=== PATIENT | female | born 1965 | race Caucasian/White ===

== ENCOUNTER 2017-08-26 10:49 | Inpatient (IN) | payer BC ==
[2017-08-26 11:28] VITALS: BMI 20.5
[2017-08-26] MEDS ORDERED: SODIUM CHLORIDE 1,000 ML IV STA (11:50)
[2017-08-26 12:31] LABS: BASO % 0.4 % (0-2.0); EOS % 1.3 % (0-4.5); HEMATOCRIT 23.3 % (32.4-45.2); LYMPH % 20.2 % (8-40); MCHC 27.8 g/dl (32.0-36.0); MEAN PLT VOLUME 7.9 fl (7.5-11.1); MONO % 10.5 % (3.8-10.2); NEUT % 67.6 % (42.8-82.8); PLATELET COUNT 424 K/MM3 (134-434); RBC 3.83 M/mm3 (3.60-5.2); RDW 19.1 % (11.6-15.6); WHITE BLOOD COUNT 7.5 K/mm3 (4.0-10.0)
[2017-08-26 12:33] LABS: INR 1.11 (0.82-1.09); PROTHROMBIN TIME (PATIENT) 12.5 SEC (9.98-11.88)
--- NOTE | 2017-08-26 12:44 | PDOC ---
History of Present Illness - General Chief Complaint: Lightheaded Stated Complaint: DIZZINESS Time Seen by Provider: 08/26/17 11:16 History Source: Patient Exam Limitations: No Limitations - History of Present Illness Initial Comments: 08/26/17 12:49 52-year-old female presents to the emergency room with complaints of intermittent dizziness for the past 2 weeks worsened when standing. Patient states when symptoms occur she does not feel nauseous or have visual disturbances along with headache but does feel generally weak so sits down and symptoms resolved. Patient states while standing up at work today symptoms reoccurred and had to sit down. Patient states when she sat down she had one episode of vomiting that contained food particles. Patient states no recent weight change, cold or heat intolerance, change in diet, recent travel, recent illness. Patient also denies dental or ear infection presently. Patient denies history of vertigo or recent head injury. Patient states does not drink much fluids throughout the day and frequently misses meals. Presenting Symptoms: Dizziness Timing/Duration: reports: intermittent Severity/Quality: reports: mild Associated Symptoms: Yes: Dizziness, Vomiting Past History - Travel Traveled outside of the country in the last 30 days: No - Past Medical History Allergies/Adverse Reactions: Allergies Allergy/AdvReac Type Severity Reaction Status Date / Time No Known Allergies Allergy Verified 01/18/13 16:52 Home Medications: Ambulatory Orders No Home Medications 0 dose .ROUTE UTDICT 10/16/12 Anemia: No Asthma: No Cancer: No Cardiac Disorders: No CVA: No COPD: No CHF: No DVT: No Dementia: No Diabetes: No Dialysis: No GI Disorders: No Disorders: No HTN: No Hypercholesterolemia: No Kidney Stones: No Liver Disease: No Psychiatric Problems: No Seizures: No Thyroid Disease: No Other medical history: Denies medical hx - Surgical History Abdominal Surgery: No Appendectomy: No Cardiac Surgery: No Cholecystectomy: No Gastric Stapling: No GI Surgery: No Lung Surgery: No Neurologic Surgery: No Orthopedic Surgery: No - Suicide/Smoking/Psychosocial Hx Smoking Status: No Smoking History: Never smoked Number of Cigarettes Smoked Daily: 0 Hx Alcohol Use: No Drug/Substance Use Hx: No Patient Lives Alone: No Lives with/in: spouse/SO Cardiac Specific PMH - Complaint Specific PMHX Angina: No Cardiac Arrhythmia: No GERD: No Peripheral Vascular Disease: No Review of Systems - Review of Systems Able to Perform ROS?: Yes Constitutional: Yes: Weakness HEENTM: No: Symptoms Reported Respiratory: No: Symptoms reported Cardiac (ROS): Yes: Lightheadedness ABD/GI: Yes: Vomiting : No: Symptoms Reported Musculoskeletal: No: Symptoms Reported Integumentary: No: Symptoms Reported Neurological: Yes: Weakness, Dizziness *Physical Exam - Vital Signs Last Vital Signs Temp Pulse Resp BP Pulse Ox 97.4 F L 84 16 137/83 100 08/26/17 11:16 08/26/17 11:22 08/26/17 11:16 08/26/17 11:22 08/26/17 11:16 - Physical Exam General Appearance: Yes: Nourished, Appropriately Dressed. No: Apparent Distress HEENT: positive: EOMI, MONICO, TMs Normal, Pharynx Normal, Pale Conjunctivae (mild ) Neck: positive: Normal Thyroid, Supple. negative: Lymphadenopathy (R), Lymphadenopathy (L) Respiratory/Chest: positive: Lungs Clear, Normal Breath Sounds. negative: Respiratory Distress, Accessory Muscle Use Cardiovascular: positive: Regular Rhythm, Regular Rate. negative: Murmur Gastrointestinal/Abdominal: positive: Soft. negative: Tenderness Integumentary: positive: Normal Color, Dry, Warm Neurologic: positive: Motor Strength 5/5 Heart Score/ECG Review - History History: Slightly suspicious - Electrocardiogram EKG: Normal - Age Age: 45-65 - Risk Factors Based on the list above the patient has:: No risk factors known - Troponin Troponin: </= normal limit - Score Heart Score - Total: 1 - ECG Intrepretation Rhythm: Regular Rhythm (Rate 80. Normal sinus rhythm. No ST elevation or depression. Intervals are regular. QTC 459 milliseconds) ED Treatment Course - LABORATORY CBC & Chemistry Diagram: 08/26/17 12:00 08/26/17 12:00 - ADDITIONAL ORDERS Additional order review: Laboratory Results 08/26/17 08/26/17 08/26/17 14:15 14:05 12:00 PT with INR INR Sodium 141 Potassium 4.2 Chloride 104 Carbon Dioxide 26 Anion Gap 11 BUN 10 Creatinine 0.6 Creat Clearance w eGFR > 60 Random Glucose 111 H Calcium 8.5 Magnesium 2.1 Total Bilirubin 0.3 AST 10 L ALT 17 Alkaline Phosphatase 91 Creatine Kinase 50 Troponin I < 0.02 Total Protein 7.1 Albumin 3.6 Stool Occult Blood Negative Crossmatch See Detail 08/26/17 12:00 PT with INR 12.50 H INR 1.11 Sodium Potassium Chloride Carbon Dioxide Anion Gap BUN Creatinine Creat Clearance w eGFR Random Glucose Calcium Magnesium Total Bilirubin AST ALT Alkaline Phosphatase Creatine Kinase Troponin I Total Protein Albumin Stool Occult Blood Crossmatch 08/26/17 12:00 RBC 3.83 MCV 61.0 L MCHC 27.8 L RDW 19.1 H D MPV 7.9 Neutrophils % 67.6 Lymphocytes % 20.2 D Monocytes % 10.5 H Eosinophils % 1.3 Basophils % 0.4 - RADIOLOGY Radiology Studies Ordered: Category Date Time Status HEAD CT WITHOUT CONTRAST [CT] Stat CT Scan 08/26/17 11:50 Completed CHEST X-RAY PORTABLE* [RAD] Stat Radiology 08/26/17 11:50 Completed - Medications Given in the ED: ED Medications Discontinued Medications Generic Name Dose Route Start Last Admin Trade Name Freq PRN Reason Stop Dose Admin Sodium Chloride 1,000 mls @ 1,000 mls/hr 08/26/17 11:50 08/26/17 12:12 Normal Saline - IV 08/26/17 12:49 1,000 mls/hr ASDIR STA Administration Medical Decision Making - Medical Decision Making 08/26/17 12:28 Patient here for intermittent dizziness with standing and today had episode while standing followed by weakness and one episode of vomiting. Patient on exam was not found to be orthostatic and had a normal EKG. Patient concerning for electrolyte imbalance, anemia, intracranial pathology, or cardiac event. Patient ordered a cardiac workup, head CT, IV fluids, urinalysis, and cardiac monitoring. 08/26/17 13:01 Laboratory Tests 08/26/17 08/26/17 08/26/17 12:00 12:00 12:00 WBC 7.5 Hgb 6.5 L* D Hct 23.3 L D MCV 61.0 L MCH 16.9 L MCHC 27.8 L RDW 19.1 H D Neutrophils % 67.6 Monocytes % 10.5 H PT with INR 12.50 H Sodium 141 Potassium 4.2 Chloride 104 Carbon Dioxide 26 Anion Gap 11 BUN 10 Creatinine 0.6 Random Glucose 111 H Magnesium 2.1 AST 10 L ALT 17 Troponin I < 0.02 Chest x-ray negative. Patient ordered for type and screen and will check stool for occult blood once patient returns from CAT scan. 1 unit of PRBC ordered. 08/26/17 14:[address] negative for intracranial lesion or hemorrhage. Will admit to the hospitalist and consult hematology. 08/26/17 14:42 Laboratory Tests 08/26/17 14:05 Stool Occult Blood Negative 08/26/17 15:06 Spoke to christophe Tolentino and consult for hem/onc to be ordered *DC/Admit/Observation/Transfer Diagnosis at time of Disposition: Symptomatic anemia, Blood transfusion during current hospitalisation - Discharge Dispostion Admit: Yes Decision to Admit order Date/Time: Decision to Admit Order Category Date Time Status Decision to Admit to Hospital Routine Admission 08/26/17 14:18 Active - Referrals - Patient Instructions - Post Discharge Activity
[2017-08-26 12:45] LABS: ALBUMIN 3.6 g/dl (3.4-5.0); ANION GAP 11 (8-16); BLOOD UREA NITROGEN 10 mg/dL (7-18); CALCIUM 8.5 mg/dL (8.5-10.1); CHLORIDE 104 mmol/L (98-107); CO2 26 mmol/L (21-32); CREATININE 0.6 mg/dL (0.55-1.02); GLUCOSE,RANDOM 111 mg/dL (74-106); MAGNESIUM 2.1 mg/dL (1.8-2.4); POTASSIUM 4.2 mmol/L (3.5-5.1); SGOT/AST 10 U/L (15-37); SGPT/ALT 17 U/L (12-78); SODIUM 141 mmol/L (136-145)
[2017-08-26 12:46] LABS: MCH 16.9 pg (25.7-33.7)
[2017-08-26 12:47] LABS: HEMOGLOBIN 6.5 GM/dL (10.7-15.3)
[2017-08-26 12:49] LABS: ALK PHOS 91 U/L (45-117); BILIRUBIN,TOTAL 0.3 mg/dL (0.2-1.0); TOT PROT 7.1 g/dl (6.4-8.2)
--- NOTE | 2017-08-26 15:02 | HP ---
CHIEF COMPLAINT: Dizziness PCP: None HISTORY OF PRESENT ILLNESS 52 year-old woman with no significant PMH was at work earlier today when she became dizzy. She felt nauseous and vomited x 1. She was taken to the ED downstairs. Patient reports experiencing episodes of dizziness for the past 4 to 6 weeks. She describes these earlier episodes as brief, lasting only a few seconds, and self-resolving. Today's episode, however, was more prolonged. Patient denies any associated symptoms with these episodes of dizziness: no headache, fever, sweats, chills; no abdominal pain or diarrhea; no chest pain, palpitations, SOB, FERRERA, orthopnea, or lower extremity edema; no hematuria, hematochezia, hematemesis, no vaginal bleeding/discharge. She does not report any type of bleeding. Her LMP was 7-8 years ago, last PAP 3 years ago. Has never had a colonoscopy. Patient had no breakfast, just a piece of chocolate. She admits she hydrates very little. ER course was notable for: (1) Afebrile, vital signs stable (2) Hgb 6.5 (3) MCV 61; RDW 19.1 Recent Travel: No PAST MEDICAL HISTORY: None reported PAST SURGICAL HISTORY: x 1 x 30 years Social History: Smoking: no Alcohol: no Drugs: no Family History: Mother age 70 ovarian cancer; father alive had HI in 40's; brother and sister a&w; two children a&w, daughter had cardiac ablation at age 23 for SVT Allergies No Known Allergies Allergy (Verified 01/18/13 16:52) HOME MEDICATIONS: Home Medications Medication Instructions Recorded No Home Medications 0 dose .ROUTE UTDICT 10/16/12 REVIEW OF SYSTEMS CONSTITUTIONAL: Absent: fever, chills, diaphoresis, generalized weakness, malaise, loss of appetite, weight change HEENT: Absent: rhinorrhea, nasal congestion, throat pain, throat swelling, difficulty swallowing, mouth swelling, ear pain, eye pain, visual changes CARDIOVASCULAR: +dizziness Absent: chest pain, syncope, palpitations, irregular heart rate, peripheral edema RESPIRATORY: Absent: cough, shortness of breath, dyspnea with exertion, orthopnea, wheezing, stridor, hemoptysis GASTROINTESTINAL: Absent: abdominal pain, abdominal distension, nausea, vomiting, diarrhea, constipation, melena, hematochezia GENITOURINARY: Absent: dysuria, frequency, urgency, hesitancy, hematuria, flank pain, genital pain MUSCULOSKELETAL: Absent: myalgia, arthralgia, joint swelling, back pain, neck pain SKIN: Absent: rash, itching, pallor HEMATOLOGIC/IMMUNOLOGIC: Absent: easy bleeding, easy bruising, lymphadenopathy, frequent infections ENDOCRINE: Absent: unexplained weight gain, unexplained weight loss, heat intolerance, cold intolerance NEUROLOGIC: Absent: headache, focal weakness or paresthesias, dizziness, unsteady gait, seizure, mental status changes, bladder or bowel incontinence PSYCHIATRIC: Absent: anxiety, depression, suicidal or homicidal ideation, hallucinations. PHYSICAL EXAMINATION Vital Signs - 24 hr 08/26/17 08/26/17 11:16 11:22 Temperature 97.4 F L Pulse Rate 84 Pulse Rate [ 84 Right side Sitting] Pulse Rate [ 83 Right side Standing] Respiratory 16 Rate Blood Pressure 141/83 Blood Pressure 137/83 [Right side Sitting] Blood Pressure 143/90 [Right side Standing] O2 Sat by Pulse 100 Oximetry (%) GENERAL: Awake, alert, and fully oriented, in no acute distress. HEAD: Normal with no signs of trauma. EYES: Pupils equal, round and reactive to light, extraocular movements intact, sclera anicteric, conjunctiva clear. No lid lag. EARS, NOSE, THROAT: Ears normal, nares patent, oropharynx clear without exudates. Moist mucous membranes. NECK: Normal range of motion, supple without lymphadenopathy, JVD, or masses. LUNGS: Breath sounds equal, clear to auscultation bilaterally. No wheezes, and no crackles. No accessory muscle use. HEART: Regular rate and rhythm, normal S1 and S2; +murmur ABDOMEN: Soft, nontender, not distended, normoactive bowel sounds, no guarding, no rebound, no masses. MUSCULOSKELETAL: Normal range of motion at all joints. No bony deformities or tenderness. No CVA tenderness. UPPER EXTREMITIES: 2+ pulses, warm, well-perfused. No cyanosis. No clubbing. No peripheral edema. LOWER EXTREMITIES: 2+ pulses, warm, well-perfused. No calf tenderness. No peripheral edema. NEUROLOGICAL: Cranial nerves II-XII intact. Normal speech. Normal gait. Laboratory Results - last 24 hr 08/26/17 08/26/17 08/26/17 12:00 12:00 12:00 WBC 7.5 RBC 3.83 Hgb 6.5 L* D Hct 23.3 L D MCV 61.0 L MCH 16.9 L MCHC 27.8 L RDW 19.1 H D Plt Count 424 D MPV 7.9 Neutrophils % 67.6 Lymphocytes % 20.2 D Monocytes % 10.5 H Eosinophils % 1.3 Basophils % 0.4 PT with INR 12.50 H INR 1.11 Sodium 141 Potassium 4.2 Chloride 104 Carbon Dioxide 26 Anion Gap 11 BUN 10 Creatinine 0.6 Creat Clearance w eGFR > 60 Random Glucose 111 H Calcium 8.5 Magnesium 2.1 Total Bilirubin 0.3 AST 10 L ALT 17 Alkaline Phosphatase 91 Creatine Kinase 50 Troponin I < 0.02 Total Protein 7.1 Albumin 3.6 Stool Occult Blood Crossmatch 08/26/17 08/26/17 14:05 14:15 WBC RBC Hgb Hct MCV MCH MCHC RDW Plt Count MPV Neutrophils % Lymphocytes % Monocytes % Eosinophils % Basophils % PT with INR INR Sodium Potassium Chloride Carbon Dioxide Anion Gap BUN Creatinine Creat Clearance w eGFR Random Glucose Calcium Magnesium Total Bilirubin AST ALT Alkaline Phosphatase Creatine Kinase Troponin I Total Protein Albumin Stool Occult Blood Negative Crossmatch See Detail ASSESSMENT/PLAN: 52 year-old woman with no significant PMH placed on observation for an episode of dizziness and vomiting at work. Has been experiencing episodes of dizziness for the past 4 to 6 weeks. Dizziness --ECG with mild T-wave inversions V1, V2, V4, V5, possible ischemia from severe anemia? repeat in am --QT interval high normal --troponin x 1 negative; second pending --echo ordered --US carotids ordered --TSH, lipids, A1C, lytes --telemetry monitoring --cardiology consult requested --CT head: mild volume loss, otherwise unremarkable --orthostatics q8h Microcytic anemia --Hgb 6.5, MCV 61.0 --transfusing 1U PRBC; then Lasix IV 20mg x 1 --seen and evaluated by heme Dr. Hill --iron studies, SPEP/IPEP, LDH --GI consult Dr. Rao requested; occult stool negative FEN Fluids: NS @ 50mL/hr Electrolytes: replete as indicated Nutrition: regular diet DVT prophylaxis: oob, ambulation Dispo: continues to require observation. Full code. Visit type - Emergency Visit Emergency Visit: Yes ED Registration Date: 08/26/17 Care time: The patient presented to the Emergency Department on the above date and was hospitalized for further evaluation of their emergent condition. - New Patient This patient is new to me today: Yes Date on this admission: 08/26/17 - Critical Care Critical Care patient: No
[2017-08-26 15:30] LABS: URINE APPEARANCE CLEAR; URINE BILIRUBIN NEGATIVE (NEGATIVE); URINE BLOOD NEGATIVE (NEGATIVE); URINE COLOR COLORLESS; URINE GLUCOSE (UA) NEGATIVE (NEGATIVE); URINE KETONE NEGATIVE (NEGATIVE); URINE LEUK ESTERASE NEGATIVE (NEGATIVE); URINE NITRITE NEGATIVE (NEGATIVE); URINE PROTEIN NEGATIVE (NEGATIVE); URINE UROBILINOGEN NEGATIVE mg/dL (0.2-1.0)
--- NOTE | 2017-08-26 16:14 | CONSULT ---
Consult Consult Specialty:: Hematology - History of Present Illness History of Present Illness: 52-year-old female presents to the emergency room with complaints of intermittent dizziness for the past 2 weeks worsened when standing. Patient is a non smoker Employee here Poor OP f.u, did not get blood work for a while Never had GI w.u denies bleeding rectally FH of mom with Ovarian ca , , diagnosed in 60s no FH of colon cancer. Denies any hx of hemoglobinopathies she is aware of Does not recall when her last mammo was/neither PAP No weight loss. Acquaintances complained recently that she was becoming pale Hematology consulted for anemia - History Source History Provided By: Patient, Medical Record - Alcohol/Substance Use Hx Alcohol Use: No - Smoking History Smoking history: Never smoked Aproximately how many cigarettes per day: 0 Home Medications - Allergies Allergies/Adverse Reactions: Allergies Allergy/AdvReac Type Severity Reaction Status Date / Time No Known Allergies Allergy Verified 01/18/13 16:52 - Home Medications Home Medications: Ambulatory Orders No Home Medications 0 dose .ROUTE UTDICT 10/16/12 Review of Systems - Review of Systems Constitutional: reports: Weakness. denies: Chills, Diaphoresis, Fever, Lethargy , Loss of Appetite, Night Sweats, Unintentional Wgt. Loss Eyes: denies: Blind Spots HENT: denies: Difficult Swallowing, Ringing in Ears Neck: denies: Decreased ROM, Lumps, Pain on Movement Cardiovascular: denies: Chest Pain, Edema, Palpitations, Shortness of Breath Respiratory: reports: SOB on Exertion. denies: Cough Neurological: reports: Dizziness Hematology/Lymphatic: reports: No Symptoms Physical Exam Vital Signs: Vital Signs Temperature 98 F 08/26/17 15:35 Pulse Rate 91 H 08/26/17 15:35 Respiratory Rate 20 08/26/17 15:35 Blood Pressure 140/86 08/26/17 15:35 O2 Sat by Pulse Oximetry (%) 100 08/26/17 11:16 Constitutional: Yes: Well Nourished, No Distress, Calm Eyes: Yes: Other (pale) HENT: Yes: Atraumatic, Normocephalic, Other (pale) Neck: Yes: Supple, Trachea Midline. No: Lymphadenopathy Cardiovascular: Yes: Regular Rate and Rhythm Respiratory: Yes: Regular, CTA Bilaterally Gastrointestinal: Yes: Normal Bowel Sounds, Soft Breast(s): Yes: WNL Musculoskeletal: Yes: WNL Extremities: Yes: WNL Edema: No Integumentary: Yes: WNL Neurological: Yes: Alert, Oriented Labs: CBC, BMP 08/26/17 12:00 08/26/17 12:00 Imaging - Results Cat Scan: Report Reviewed Problem List - Problems (1) Symptomatic anemia Code(s): D64.9 - ANEMIA, UNSPECIFIED (2) Thrombocytosis Assessment/Plan: reactive Code(s): D47.3 - ESSENTIAL (HEMORRHAGIC) THROMBOCYTHEMIA (3) Dizziness Code(s): R42 - DIZZINESS AND GIDDINESS Assessment/Plan new Microcytic anemia seems chronic, as noticed by MCV and RDW. last values in [place] 2012 , were normal FOBTx1 negative. Seems well compensated. Receiving PRBCs. will do screening tests to be added for today am labs as she is receiving blood Never had a GI w/u, screening colonoscopy too. Will need w/u OP/IP. Would consult GI to weigh in. Would anticipate her staying on Fe supplements upon dc, but will wait for iron levels. explained the pt importance of OP f/u leonel >50. OP malignancy screening Thrombocytosis Reactive from Anemia
--- NOTE | 2017-08-26 17:32 | EKG ---
Test Reason : Blood Pressure : / mmHG Vent. Rate : 080 BPM Atrial Rate : 080 BPM P-R Int : 158 ms QRS Dur : 086 ms QT Int : 398 ms P-R-T Axes : 072 039 015 degrees QTc Int : 459 ms NORMAL SINUS RHYTHM NORMAL ECG WHEN COMPARED WITH ECG OF 20-OCT-2012 16:05, NO SIGNIFICANT CHANGE WAS FOUND Confirmed by Sher Estrella ([id number]) on 08/26/2017 5:32:01 PM Referred By: Confirmed By:Sher Estrella
[2017-08-26] MEDS ORDERED: FUROSEMIDE 40 MG/4 ML INJECTABLE VIAL IVPUSH ONE ×2 (19:30→22:15)
[2017-08-26] MEDS ORDERED: ONDANSETRON 4 MG/2 ML VIAL IVPUSH ONE (19:41)
[2017-08-26] MEDS ORDERED: ACETAMINOPHEN 325 MG TABLET (FP) PO ONE (19:41)
[2017-08-26] MEDS ORDERED: SODIUM CHLORIDE 1,000 ML IV SCH (20:00)
[2017-08-27 07:10] LABS: BASO % 0.4 % (0-2.0); EOS % 1.7 % (0-4.5); HEMATOCRIT 25.6 % (32.4-45.2); HEMOGLOBIN 7.5 GM/dL (10.7-15.3); LYMPH % 25.6 % (8-40); MCHC 29.3 g/dl (32.0-36.0); MEAN CELL VOLUME 63.5 fl (80-96); MEAN PLT VOLUME 8.2 fl (7.5-11.1); MONO % 10.9 % (3.8-10.2); NEUT % 61.4 % (42.8-82.8); PLATELET COUNT 382 K/MM3 (134-434); RBC 4.03 M/mm3 (3.60-5.2); RDW 21.9 % (11.6-15.6); WHITE BLOOD COUNT 6.7 K/mm3 (4.0-10.0)
[2017-08-27 07:48] LABS: ALBUMIN 3.3 g/dl (3.4-5.0); ANION GAP 7 (8-16); BLOOD UREA NITROGEN 6 mg/dL (7-18); CHLORIDE 108 mmol/L (98-107); CO2 27 mmol/L (21-32); CREATININE 0.7 mg/dL (0.55-1.02); GLUCOSE,RANDOM 105 mg/dL (74-106); MAGNESIUM 1.9 mg/dL (1.8-2.4); POTASSIUM 3.9 mmol/L (3.5-5.1); SGOT/AST 7 U/L (15-37); SGPT/ALT 15 U/L (12-78); SODIUM 142 mmol/L (136-145)
[2017-08-27 07:59] LABS: ALK PHOS 88 U/L (45-117); BILIRUBIN,TOTAL 0.7 mg/dL (0.2-1.0); TOT PROT 6.3 g/dl (6.4-8.2)
--- NOTE | 2017-08-27 08:23 | PN ---
Physical Exam: SUBJECTIVE: Patient seen and examined OBJECTIVE: Vital Signs Period Temp Pulse Resp BP Sys/Silva Pulse Ox Last 24 Hr 97.4 F-99.1 F 78-96 16-20 97-143/70-90 97-100 Laboratory Results - last 24 hr 08/26/17 08/26/17 08/26/17 12:00 12:00 12:00 WBC 7.5 RBC 3.83 Hgb 6.5 L* D Hct 23.3 L D MCV 61.0 L MCH 16.9 L MCHC 27.8 L RDW 19.1 H D Plt Count 424 D MPV 7.9 Neutrophils % 67.6 Lymphocytes % 20.2 D Monocytes % 10.5 H Eosinophils % 1.3 Basophils % 0.4 Retic Count PT with INR 12.50 H INR 1.11 Sodium 141 Potassium 4.2 Chloride 104 Carbon Dioxide 26 Anion Gap 11 BUN 10 Creatinine 0.6 Creat Clearance w eGFR > 60 Random Glucose 111 H Calcium 8.5 Phosphorus Magnesium 2.1 Ferritin Total Bilirubin 0.3 AST 10 L ALT 17 Alkaline Phosphatase 91 LD Total Creatine Kinase 50 Troponin I < 0.02 Total Protein 7.1 Albumin 3.6 Triglycerides Cholesterol Total LDL Cholesterol HDL Cholesterol TSH Urine Color Urine Appearance Urine pH Ur Specific [place] Urine Protein Urine Glucose (UA) Urine Ketones Urine Blood Urine Nitrite Urine Bilirubin Urine Urobilinogen Ur Leukocyte Esterase Stool Occult Blood Blood Type Antibody Screen Crossmatch 08/26/17 08/26/17 08/26/17 14:05 14:15 15:15 WBC RBC Hgb Hct MCV MCH MCHC RDW Plt Count MPV Neutrophils % Lymphocytes % Monocytes % Eosinophils % Basophils % Retic Count PT with INR INR Sodium Potassium Chloride Carbon Dioxide Anion Gap BUN Creatinine Creat Clearance w eGFR Random Glucose Calcium Phosphorus Magnesium Ferritin Total Bilirubin AST ALT Alkaline Phosphatase LD Total Creatine Kinase Troponin I Total Protein Albumin Triglycerides Cholesterol Total LDL Cholesterol HDL Cholesterol TSH Urine Color Colorless Urine Appearance Clear Urine pH 7.0 Ur Specific [place] 1.004 Urine Protein Negative Urine Glucose (UA) Negative Urine Ketones Negative Urine Blood Negative Urine Nitrite Negative Urine Bilirubin Negative Urine Urobilinogen Negative Ur Leukocyte Esterase Negative Stool Occult Blood Negative Blood Type O NEGATIVE Antibody Screen Negative Crossmatch See Detail 08/26/17 08/26/17 08/26/17 15:15 15:22 22:00 WBC RBC Hgb Hct MCV MCH MCHC RDW Plt Count MPV Neutrophils % Lymphocytes % Monocytes % Eosinophils % Basophils % Retic Count 1.87 H PT with INR INR Sodium Potassium Chloride Carbon Dioxide Anion Gap BUN Creatinine Creat Clearance w eGFR Random Glucose Calcium Phosphorus Magnesium Ferritin 1.795 L Total Bilirubin AST ALT Alkaline Phosphatase LD Total Creatine Kinase Troponin I Total Protein Albumin Triglycerides Cholesterol Total LDL Cholesterol HDL Cholesterol TSH Urine Color Urine Appearance Urine pH Ur Specific [place] Urine Protein Urine Glucose (UA) Urine Ketones Urine Blood Urine Nitrite Urine Bilirubin Urine Urobilinogen Ur Leukocyte Esterase Stool Occult Blood Blood Type O NEGATIVE Antibody Screen Cancelled Crossmatch 08/26/17 08/26/17 08/27/17 22:00 22:00 05:35 WBC RBC Hgb Hct MCV MCH MCHC RDW Plt Count MPV Neutrophils % Lymphocytes % Monocytes % Eosinophils % Basophils % Retic Count PT with INR INR Sodium 142 Potassium 3.9 Chloride 108 H Carbon Dioxide 27 Anion Gap 7 L BUN 6 L Creatinine 0.7 Creat Clearance w eGFR > 60 Random Glucose 105 Calcium 8.0 L Phosphorus 4.0 Magnesium 1.9 Ferritin Total Bilirubin 0.7 D AST 7 L ALT 15 Alkaline Phosphatase 88 LD Total 154 Creatine Kinase Troponin I < 0.02 Total Protein 6.3 L Albumin 3.3 L Triglycerides Cholesterol Total LDL Cholesterol HDL Cholesterol TSH 2.59 Urine Color Urine Appearance Urine pH Ur Specific [place] Urine Protein Urine Glucose (UA) Urine Ketones Urine Blood Urine Nitrite Urine Bilirubin Urine Urobilinogen Ur Leukocyte Esterase Stool Occult Blood Blood Type Antibody Screen Crossmatch 08/27/17 05:35 WBC RBC Hgb Hct MCV MCH MCHC RDW Plt Count MPV Neutrophils % Lymphocytes % Monocytes % Eosinophils % Basophils % Retic Count PT with INR INR Sodium Potassium Chloride Carbon Dioxide Anion Gap BUN Creatinine Creat Clearance w eGFR Random Glucose Calcium Phosphorus Magnesium Ferritin Total Bilirubin AST ALT Alkaline Phosphatase LD Total Creatine Kinase Troponin I Total Protein Albumin Triglycerides Cancelled Cholesterol Cancelled Total LDL Cholesterol Cancelled HDL Cholesterol Cancelled TSH Urine Color Urine Appearance Urine pH Ur Specific [place] Urine Protein Urine Glucose (UA) Urine Ketones Urine Blood Urine Nitrite Urine Bilirubin Urine Urobilinogen Ur Leukocyte Esterase Stool Occult Blood Blood Type Antibody Screen Crossmatch Imagng 2 US carotids: elevated peak systolic velocities bilateral cervical internal carotids, 50-69% stenosis with no significant plaque 2/ US transvaginal: normal study ASSESSMENT/PLAN 52 year-old woman with no significant PMH placed on observation for an episode of dizziness and vomiting at work. Has been experiencing episodes of dizziness for the past 4 to 6 weeks. Dizziness --seen and evaluated by cardiology, doubt cardiac etiology for episodes of dizziness --ECG with non-specific changes --troponin x 2 negative --echo ordered pending dictation --US carotids: no significant plaque --telemetry: no events --TSH wnl --lipids: LDL 163, discuss starting statin with patient --A1C 5.4% --CT head: mild volume loss, otherwise unremarkable --not orthostatic Microcytic anemia --Hgb 6.5--7.5 after 1U PRBC --anemia workup in progress --Dr. Hill following --EGD/colonoscopy tomorrow with Dr. Maira SORENSEN Fluids: PO intake adequate Electrolytes: replete as indicated Nutrition: regular diet DVT prophylaxis: oob, ambulation Dispo: continues to require observation. Full code. Visit type - Emergency Visit Emergency Visit: Yes ED Registration Date: 08/26/17 Care time: The patient presented to the Emergency Department on the above date and was hospitalized for further evaluation of their emergent condition. - New Patient This patient is new to me today: No - Critical Care Critical Care patient: No
[2017-08-27 08:24] LABS: MCH 18.6 pg (25.7-33.7)
--- NOTE | 2017-08-27 09:08 | CON.GI ---
Consult Consult Specialty:: GI Reason for Consultation:: Aneia - History of Present Illness Chief Complaint: Anemia History of Present Illness: 52 year-old woman with no significant PMH was at work earlier today when she became dizzy. She felt nauseous and vomited x 1. Patient reports experiencing episodes of dizziness for the past 4 to 6 weeks. She describes these earlier episodes as brief, lasting only a few seconds, and self-resolving. Today's episode, however, was more prolonged. Patient denies any associated symptoms with these episodes of dizziness: no headache, fever, sweats, chills; no abdominal pain or diarrhea; no chest pain, palpitations, SOB, FERRERA, orthopnea, or lower extremity edema; no hematuria, hematochezia, hematemesis, no vaginal bleeding/discharge. She does not report any type of bleeding. Her LMP was 7-8 years ago, last PAP 3 years ago. Has never had a colonoscopy. At the time of this encounter, the pt appears comfortable, not in distress. Reports no recent melena, changes in stool caliper, unintentional weight loss, jaundice, low grade fever, chills, fluctuating abdominal girth. Denies prolonged bleeding, or easy bruising. Denies chronic NSAIDs, ETOH. - History Source History Provided By: Patient, Medical Record Limitations to Obtaining History: No Limitations - Alcohol/Substance Use Hx Alcohol Use: No - Smoking History Smoking history: Never smoked Aproximately how many cigarettes per day: 0 Home Medications - Allergies Allergies/Adverse Reactions: Allergies Allergy/AdvReac Type Severity Reaction Status Date / Time No Known Allergies Allergy Verified 01/18/13 16:52 - Home Medications Home Medications: Ambulatory Orders No Home Medications 0 dose .ROUTE UTDICT 10/16/12 Family Disease History - Family Disease History Family History: Unremarkable Review of Systems Findings/Remarks: As per HPI, H&P Physical Exam-GI Vital Signs: Vital Signs Temperature 98.7 F 08/26/17 23:00 Pulse Rate 78 08/27/17 06:00 Respiratory Rate 18 08/26/17 23:00 Blood Pressure 97/70 08/27/17 06:00 O2 Sat by Pulse Oximetry (%) 97 08/26/17 23:15 Constitutional: Yes: Well Nourished, No Distress, Calm, Pallor Eyes: Yes: Conjunctiva Clear HENT: Yes: Atraumatic Neck: Yes: Supple Cardiovascular: Yes: Regular Rate and Rhythm Respiratory: Yes: Regular Gastrointestinal Inspection: No: Ascites, Distention ...Auscultate: Yes: Normoactive Bowel Sounds ...Palpate: Yes: Soft. No: Firm/Rigid, Guarding, Mass, Tenderness, Tenderness, Epigastium, Tenderness, Rebound ...Rectal Exam: Yes: Guaiac Negative (per lab) Neurological: Yes: Alert Labs: CBC, BMP 08/27/17 05:35 08/27/17 05:35 INR, PTT INR 1.11 (0.82-1.09) 08/26/17 12:00 Laboratory Tests 08/26/17 08/26/17 08/26/17 12:00 12:00 12:00 WBC 7.5 RBC 3.83 Hgb 6.5 L* D Hct 23.3 L D MCV 61.0 L MCH 16.9 L MCHC 27.8 L RDW 19.1 H D Plt Count 424 D MPV 7.9 Neutrophils % 67.6 Lymphocytes % 20.2 D Monocytes % 10.5 H Eosinophils % 1.3 Basophils % 0.4 Retic Count PT with INR 12.50 H INR 1.11 Sodium 141 Potassium 4.2 Chloride 104 Carbon Dioxide 26 Anion Gap 11 BUN 10 Creatinine 0.6 Creat Clearance w eGFR > 60 Random Glucose 111 H Hemoglobin A1c % Calcium 8.5 Phosphorus Magnesium 2.1 Ferritin Total Bilirubin 0.3 AST 10 L ALT 17 Alkaline Phosphatase 91 LD Total Creatine Kinase 50 Troponin I < 0.02 Total Protein 7.1 Albumin 3.6 Triglycerides Cholesterol Total LDL Cholesterol HDL Cholesterol TSH Urine Color Urine Appearance Urine pH Ur Specific [place] Urine Protein Urine Glucose (UA) Urine Ketones Urine Blood Urine Nitrite Urine Bilirubin Urine Urobilinogen Ur Leukocyte Esterase Stool Occult Blood Blood Type Antibody Screen Crossmatch 08/26/17 08/26/17 08/26/17 14:05 14:15 15:15 WBC RBC Hgb Hct MCV MCH MCHC RDW Plt Count MPV Neutrophils % Lymphocytes % Monocytes % Eosinophils % Basophils % Retic Count PT with INR INR Sodium Potassium Chloride Carbon Dioxide Anion Gap BUN Creatinine Creat Clearance w eGFR Random Glucose Hemoglobin A1c % Calcium Phosphorus Magnesium Ferritin Total Bilirubin AST ALT Alkaline Phosphatase LD Total Creatine Kinase Troponin I Total Protein Albumin Triglycerides Cholesterol Total LDL Cholesterol HDL Cholesterol TSH Urine Color Colorless Urine Appearance Clear Urine pH 7.0 Ur Specific [place] 1.004 Urine Protein Negative Urine Glucose (UA) Negative Urine Ketones Negative Urine Blood Negative Urine Nitrite Negative Urine Bilirubin Negative Urine Urobilinogen Negative Ur Leukocyte Esterase Negative Stool Occult Blood Negative Blood Type O NEGATIVE Antibody Screen Negative Crossmatch See Detail 08/26/17 08/26/17 08/26/17 15:15 15:22 22:00 WBC RBC Hgb Hct MCV MCH MCHC RDW Plt Count MPV Neutrophils % Lymphocytes % Monocytes % Eosinophils % Basophils % Retic Count 1.87 H PT with INR INR Sodium Potassium Chloride Carbon Dioxide Anion Gap BUN Creatinine Creat Clearance w eGFR Random Glucose Hemoglobin A1c % Calcium Phosphorus Magnesium Ferritin 1.795 L Total Bilirubin AST ALT Alkaline Phosphatase LD Total Creatine Kinase Troponin I Total Protein Albumin Triglycerides Cholesterol Total LDL Cholesterol HDL Cholesterol TSH Urine Color Urine Appearance Urine pH Ur Specific [place] Urine Protein Urine Glucose (UA) Urine Ketones Urine Blood Urine Nitrite Urine Bilirubin Urine Urobilinogen Ur Leukocyte Esterase Stool Occult Blood Blood Type O NEGATIVE Antibody Screen Cancelled Crossmatch 08/26/17 08/26/17 08/27/17 22:00 22:00 05:35 WBC 6.7 RBC 4.03 Hgb 7.5 L D Hct 25.6 L MCV 63.5 L MCH 18.6 L MCHC 29.3 L RDW 21.9 H D Plt Count 382 MPV 8.2 Neutrophils % 61.4 Lymphocytes % 25.6 D Monocytes % 10.9 H Eosinophils % 1.7 Basophils % 0.4 Retic Count PT with INR INR Sodium Potassium Chloride Carbon Dioxide Anion Gap BUN Creatinine Creat Clearance w eGFR Random Glucose Hemoglobin A1c % Calcium Phosphorus Magnesium Ferritin Total Bilirubin AST ALT Alkaline Phosphatase LD Total 154 Creatine Kinase Troponin I < 0.02 Total Protein Albumin Triglycerides Cholesterol Total LDL Cholesterol HDL Cholesterol TSH Urine Color Urine Appearance Urine pH Ur Specific [place] Urine Protein Urine Glucose (UA) Urine Ketones Urine Blood Urine Nitrite Urine Bilirubin Urine Urobilinogen Ur Leukocyte Esterase Stool Occult Blood Blood Type Antibody Screen Crossmatch 08/27/17 08/27/17 08/27/17 05:35 05:35 05:35 WBC RBC Hgb Hct MCV MCH MCHC RDW Plt Count MPV Neutrophils % Lymphocytes % Monocytes % Eosinophils % Basophils % Retic Count PT with INR INR Sodium 142 Potassium 3.9 Chloride 108 H Carbon Dioxide 27 Anion Gap 7 L BUN 6 L Creatinine 0.7 Creat Clearance w eGFR > 60 Random Glucose 105 Hemoglobin A1c % 5.4 Calcium 8.0 L Phosphorus 4.0 Magnesium 1.9 Ferritin Total Bilirubin 0.7 D AST 7 L ALT 15 Alkaline Phosphatase 88 LD Total Creatine Kinase Troponin I Total Protein 6.3 L Albumin 3.3 L Triglycerides 124 Cancelled Cholesterol 215 H Cancelled Total LDL Cholesterol 163 H Cancelled HDL Cholesterol 32 L Cancelled TSH 2.59 Urine Color Urine Appearance Urine pH Ur Specific [place] Urine Protein Urine Glucose (UA) Urine Ketones Urine Blood Urine Nitrite Urine Bilirubin Urine Urobilinogen Ur Leukocyte Esterase Stool Occult Blood Blood Type Antibody Screen Crossmatch Imaging - Results Cat Scan: Report Reviewed Ultrasound: Report Reviewed Problem List - Problems (1) Microcytic hypochromic anemia Code(s): D50.9 - IRON DEFICIENCY ANEMIA, UNSPECIFIED (2) Iron deficiency anemia due to chronic blood loss Code(s): D50.0 - IRON DEFICIENCY ANEMIA SECONDARY TO BLOOD LOSS (CHRONIC) (3) Symptomatic anemia Code(s): D64.9 - ANEMIA, UNSPECIFIED Assessment/Plan A 52 yof with microcytic, hypochromic, symptomatic anemia w/o obvious, ongoing GI blood loss. Agree anemia work up as ordered. Plan EGD and colonoscopy to r/o GI malignancy, chronic GI blood loss Close monitoring for signs and symptoms of GI bleeding. Keep Hgb above 7 g/dl Discussed with the patient
[2017-08-27] MEDS ORDERED: ACETAMINOPHEN 500 MG TABLET (FP) PO PRN (09:09)
[2017-08-27 09:48] LABS: CHOLESTEROL 215 mg/dL (50-200); HDL CHOLESTEROL 32 mg/dL (40-60); LDL CHOLESTEROL (ONLY SJRH) 163 mg/dL (5-100); TRIGLYCERIDES 124 mg/dL (35-160)
[2017-08-27] MEDS ORDERED: MORPHINE SULFATE 10 MG/1 ML *VIAL IVPUSH PRN (10:13)
[2017-08-27] MEDS ORDERED: BISACODYL 5 MG TABLET.DR (FP) PO ONE (10:47)
--- NOTE | 2017-08-27 11:28 | EKG ---
Test Reason : Blood Pressure : / mmHG Vent. Rate : 092 BPM Atrial Rate : 092 BPM P-R Int : 156 ms QRS Dur : 078 ms QT Int : 366 ms P-R-T Axes : 074 037 016 degrees QTc Int : 452 ms NORMAL SINUS RHYTHM NONSPECIFIC ST AND T WAVE ABNORMALITY ABNORMAL ECG WHEN COMPARED WITH ECG OF 26-AUG-2017 12:29, NO SIGNIFICANT CHANGE WAS FOUND Confirmed by TITA FELIX, BILL ([id number]) on 08/27/2017 11:28:09 AM Referred By: Jonah EVERETT Confirmed By:BILL RIVERS MD
--- NOTE | 2017-08-27 11:42 | CON.CARD ---
Cardiology Consult (text) - Consultation Consultation Note: cc: dizzy hpi: 52 f no sig pmhx here with dizziness. Past 2 weeks has been having dizziness and general weakness. Sxs happen at rest or with exertion, not related to positioning. No cp, sob, palps, loc, pnd, orthopnea, le edema. No hx hrt dz. Found to have severe anemia. pmh: per hpi psh: nc social: no tob fam: father mild mi 40s ros: per hpi; no nvd, fever, wt loss, hematuria, gib, muscle pains, fritz, vision changes, cough meds: Home Medications Medication Instructions Recorded No Home Medications 0 dose .ROUTE UTDICT 10/16/12 pe: Vital Signs Period Temp Pulse Resp BP Sys/Silva Pulse Ox Last 24 Hr 98 F-99.1 F 78-98 18-20 93-140/68-86 97-98 nad no jvd rrr s1s1 no mrg cta bl nl eff aaox3 no le e/c/c abd nt nd pos bs no jaundice diaphoresis pos dp pt no carotid bruits Laboratory Last Values WBC 6.7 K/mm3 (4.0-10.0) 08/27/17 05:35 RBC 4.03 M/mm3 (3.60-5.2) 08/27/17 05:35 Hgb 7.5 GM/dL (10.7-15.3) L D 08/27/17 05:35 Hct 25.6 % (32.4-45.2) L 08/27/17 05:35 MCV 63.5 fl (80-96) L 08/27/17 05:35 MCH 18.6 pg (25.7-33.7) L 08/27/17 05:35 MCHC 29.3 g/dl (32.0-36.0) L 08/27/17 05:35 RDW 21.9 % (11.6-15.6) H D 08/27/17 05:35 Plt Count 382 K/MM3 (134-434) 08/27/17 05:35 MPV 8.2 fl (7.5-11.1) 08/27/17 05:35 Neutrophils % 61.4 % (42.8-82.8) 08/27/17 05:35 Lymphocytes % 25.6 % (8-40) D 08/27/17 05:35 Monocytes % 10.9 % (3.8-10.2) H 08/27/17 05:35 Eosinophils % 1.7 % (0-4.5) 08/27/17 05:35 Basophils % 0.4 % (0-2.0) 08/27/17 05:35 Retic Count 1.87 % (0.5-1.5) H 08/26/17 15:22 PT with INR 12.50 SEC (9.98-11.88) H 08/26/17 12:00 INR 1.11 (0.82-1.09) 08/26/17 12:00 Sodium 142 mmol/L (136-145) 08/27/17 05:35 Potassium 3.9 mmol/L (3.5-5.1) 08/27/17 05:35 Chloride 108 mmol/L (98-107) H 08/27/17 05:35 Carbon Dioxide 27 mmol/L (21-32) 08/27/17 05:35 Anion Gap 7 (8-16) L 08/27/17 05:35 BUN 6 mg/dL (7-18) L 08/27/17 05:35 Creatinine 0.7 mg/dL (0.55-1.02) 08/27/17 05:35 Creat Clearance w eGFR > 60 (>60) 08/27/17 05:35 Random Glucose 105 mg/dL (74-106) 08/27/17 05:35 Hemoglobin A1c % 5.4 % (4.8-6.0) 08/27/17 05:35 Calcium 8.0 mg/dL (8.5-10.1) L 08/27/17 05:35 Phosphorus 4.0 mg/dL (2.5-4.9) 08/27/17 05:35 Magnesium 1.9 mg/dL (1.8-2.4) 08/27/17 05:35 Ferritin 1.795 ng/ml (6.9-282.5) L 08/26/17 22:00 Total Bilirubin 0.7 mg/dL (0.2-1.0) D 08/27/17 05:35 AST 7 U/L (15-37) L 08/27/17 05:35 ALT 15 U/L (12-78) 08/27/17 05:35 Alkaline Phosphatase 88 U/L (45-117) 08/27/17 05:35 LD Total 154 U/L (84-246) 08/26/17 22:00 Creatine Kinase 50 IU/L (26-192) 08/26/17 12:00 Troponin I < 0.02 ng/ml (0.00-0.05) 08/26/17 22:00 Total Protein 6.3 g/dl (6.4-8.2) L 08/27/17 05:35 Albumin 3.3 g/dl (3.4-5.0) L 08/27/17 05:35 Triglycerides 124 mg/dL (35-160) 08/27/17 05:35 Cholesterol 215 mg/dL (50-200) H 08/27/17 05:35 Total LDL Cholesterol 163 mg/dL (5-100) H 08/27/17 05:35 HDL Cholesterol 32 mg/dL (40-60) L 08/27/17 05:35 TSH 2.59 uIU/ml (0.358-3.74) 08/27/17 05:35 Urine Color Colorless 08/26/17 15:15 Urine Appearance Clear 08/26/17 15:15 Urine pH 7.0 (5.0-8.0) 08/26/17 15:15 Ur Specific [place] 1.004 (1.001-1.035) 08/26/17 15:15 Urine Protein Negative (NEGATIVE) 08/26/17 15:15 Urine Glucose (UA) Negative (NEGATIVE) 08/26/17 15:15 Urine Ketones Negative (NEGATIVE) 08/26/17 15:15 Urine Blood Negative (NEGATIVE) 08/26/17 15:15 Urine Nitrite Negative (NEGATIVE) 08/26/17 15:15 Urine Bilirubin Negative (NEGATIVE) 08/26/17 15:15 Urine Urobilinogen Negative mg/dL (0.2-1.0) 08/26/17 15:15 Ur Leukocyte Esterase Negative (NEGATIVE) 08/26/17 15:15 Stool Occult Blood Negative (NEGATIVE) 08/26/17 14:05 Blood Type O NEGATIVE 08/26/17 15:15 Antibody Screen Negative 08/26/17 14:15 Crossmatch See Detail 08/26/17 14:15 cxr: clear lungs ecg: sr, nl intervals, no ischemic changes tele: sr a/p: 52 f no sig pmhx here with dizziness. dizziness, weakness, anemia: -sxs likely due to anemia -no suggestion of cardiac etiology -ecg unremarkable, trop negx2, tele benign, ortho vs's nl -check echo -anemia w/u per heme, GI -no cardiac contraindications to egd/foc
[2017-08-27] MEDS ORDERED: PEG 3350/NA SULF BICARB CL/KCL 4000 ML SOLN.RECON PO ONE (15:00)
[2017-08-28 06:11] LABS: SERUM IRON SATURATION 23 % (15-55); TOTAL IRON BINDING CAPACITY 394 ug/dL (250-450); UIBC 304 ug/dL (131-425)
[2017-08-28 06:11] LABS: SERUM IRON SATURATION 2 % (15-55); TOTAL IRON BINDING CAPACITY 417 ug/dL (250-450); UIBC 407 ug/dL (131-425)
[2017-08-28 06:31] LABS: INR 1.12 (0.82-1.09); PROTHROMBIN TIME (PATIENT) 12.7 SEC (9.98-11.88)
[2017-08-28 06:37] LABS: BASO % 0.6 % (0-2.0); EOS % 2.5 % (0-4.5); HEMATOCRIT 24.8 % (32.4-45.2); HEMOGLOBIN 7.3 GM/dL (10.7-15.3); LYMPH % 27.3 % (8-40); MCH 18.8 pg (25.7-33.7); MCHC 29.3 g/dl (32.0-36.0); MEAN CELL VOLUME 64.2 fl (80-96); MEAN PLT VOLUME 8.2 fl (7.5-11.1); MONO % 11.5 % (3.8-10.2); NEUT % 58.1 % (42.8-82.8); PLATELET COUNT 352 K/MM3 (134-434); RBC 3.86 M/mm3 (3.60-5.2); RDW 21.5 % (11.6-15.6); WHITE BLOOD COUNT 5.7 K/mm3 (4.0-10.0)
[2017-08-28 06:38] LABS: ADD RBC MORPHOLOGY YES
[2017-08-28 06:39] LABS: ALBUMIN 3.2 g/dl (3.4-5.0); ANION GAP 8 (8-16); BILIRUBIN,TOTAL 0.4 mg/dL (0.2-1.0); BLOOD UREA NITROGEN 4 mg/dL (7-18); CALCIUM 8.7 mg/dL (8.5-10.1); CHLORIDE 108 mmol/L (98-107); CO2 29 mmol/L (21-32); CREATININE 0.6 mg/dL (0.55-1.02); GLUCOSE,RANDOM 97 mg/dL (74-106); POTASSIUM 3.7 mmol/L (3.5-5.1); SGOT/AST 9 U/L (15-37); SGPT/ALT 15 U/L (12-78); SODIUM 145 mmol/L (136-145); TOT PROT 6.3 g/dl (6.4-8.2)
[2017-08-28 06:40] LABS: ALK PHOS 82 U/L (45-117)
[2017-08-28] MEDS ORDERED: PROPOFOL 20 ML ONE ×6 (08:01)
--- NOTE | 2017-08-28 09:01 | PN ---
Progress Note (short form) - Note Progress Note: Pt seen and examined Chart reviewed back from GI procedures. O/E: General: Appears pale HEENT: NCAT Cor: RRR Lungs: CTA b/l Abd: benign LE: NO edema Last Vital Signs Temp Pulse Resp BP Pulse Ox 98.5 F 78 16 103/63 97 08/28/17 06:00 08/28/17 06:00 08/28/17 06:00 08/28/17 06:00 08/27/17 23:00 CBC, BMP 08/28/17 05:35 08/28/17 05:35 Current Medications Generic Name Dose Route Start Last Admin Trade Name Freq PRN Reason Stop Dose Admin Acetaminophen 1,000 mg 08/27/17 09:09 08/27/17 09:37 Tylenol - PO 1,000 mg Q8H PRN Administration PAIN LEVEL 1-5 Morphine Sulfate 2 mg 08/27/17 10:13 Morphine Injection - IVPUSH Q4H PRN PAIN LEVEL 6-10 severe Iron def anemia (ferritin of 1) etiology most likely the colonoscopy findings for GI w/u, GI note reviewed Staging scans/CEA as ordered Surgical c/s d/w pathology, mostly will be available tomorrow for 2U PRBCS today d.w pt. Problem List - Problems (1) Symptomatic anemia Code(s): D64.9 - ANEMIA, UNSPECIFIED (2) Thrombocytosis Code(s): D47.3 - ESSENTIAL (HEMORRHAGIC) THROMBOCYTHEMIA (3) Dizziness Code(s): R42 - DIZZINESS AND GIDDINESS
--- NOTE | 2017-08-28 09:29 | PROC ---
Endoscopy Procedure Endoscopy procedure completed. Please see scanned procedure report.
[2017-08-28 09:41] LABS: ANISOCYTOSIS 2+; PLATELET ESTIMATE ADEQUATE
--- NOTE | 2017-08-28 09:48 | PN ---
Progress Note (short form) - Note Progress Note: A nearly obstructing circumferential mass at about 60 cm was found, tattooed, and biopsied. Suspect malignancy. 1 cm polyp was removed from sigmoid 5 mm polyp was removed from rectum Low residual diet CT A/P/C with contrast Surgery consult called (Dr. Ash) Hem/Oncology is on the case Problem List - Problems (1) Microcytic hypochromic anemia Code(s): D50.9 - IRON DEFICIENCY ANEMIA, UNSPECIFIED (2) Iron deficiency anemia due to chronic blood loss Code(s): D50.0 - IRON DEFICIENCY ANEMIA SECONDARY TO BLOOD LOSS (CHRONIC) (3) Symptomatic anemia Code(s): D64.9 - ANEMIA, UNSPECIFIED
--- NOTE | 2017-08-28 11:03 | PN ---
Progress Note (short form) - Note Progress Note: s: no cp sob palps dizzy o: Vital Signs Period Temp Pulse Resp BP Sys/Silva Pulse Ox Last 24 Hr 98.2 F-98.5 F 72-83 16-24 103-137/61-85 97-100 nad no jvd rrr s1s1 no mrg cta bl nl eff aaox3 no le e/c/c no jaundice diaphoresis Current Medications Generic Name Dose Route Start Last Admin Trade Name Freq PRN Reason Stop Dose Admin Acetaminophen 1,000 mg 08/27/17 09:09 08/27/17 09:37 Tylenol - PO 1,000 mg Q8H PRN Administration PAIN LEVEL 1-5 Morphine Sulfate 2 mg 08/27/17 10:13 Morphine Injection - IVPUSH Q4H PRN PAIN LEVEL 6-10 CBC, BMP 08/28/17 05:35 08/28/17 05:35 cxr: clear lungs ecg: sr, nl intervals, no ischemic changes tele: sr echo 08/2017: nl lv/rv, no sig valve path a/p: 52 f no sig pmhx here with dizziness. dizziness, weakness, anemia: -sxs likely due to anemia -no suggestion of cardiac etiology -ecg and echo unremarkable, trop negx2, tele benign, ortho vs's nl -FOC today shows colon mass, further w/u per GI/surgery -dc tele
--- NOTE | 2017-08-28 12:34 | PN ---
Physical Exam: SUBJECTIVE: Patient seen and examined. Pale. Subdued. OBJECTIVE: Vital Signs Period Temp Pulse Resp BP Sys/Silva Pulse Ox Last 24 Hr 98.2 F-98.5 F 71-83 16-24 99-143/61-85 97-100 GENERAL: Awake, alert, and fully oriented. Pale. LUNGS: Breath sounds equal, clear to auscultation bilaterally. No wheezes, and no crackles. No accessory muscle use. HEART: Regular rate and rhythm, normal S1 and S2; +murmur ABDOMEN: Soft, nontender, not distended, normoactive bowel sounds, no guarding, no rebound, no masses. UPPER EXTREMITIES: 2+ pulses, warm, well-perfused. No cyanosis. No clubbing. No peripheral edema. LOWER EXTREMITIES: 2+ pulses, warm, well-perfused. No calf tenderness. No peripheral edema. NEUROLOGICAL: Cranial nerves II-XII intact. Normal speech. Laboratory Results - last 24 hr 08/26/17 08/26/17 08/27/17 15:15 22:00 05:35 WBC RBC Hgb Hct MCV MCH MCHC RDW Plt Count MPV Neutrophils % Lymphocytes % Monocytes % Eosinophils % Basophils % Hypochromia Platelet Estimate Polychromasia Anisocytosis Microcytosis PT with INR INR Sodium Potassium Chloride Carbon Dioxide Anion Gap BUN Creatinine Creat Clearance w eGFR Random Glucose Calcium Iron 10 L 90 TIBC 417 394 Iron Saturation 2 L 23 Total Bilirubin AST ALT Alkaline Phosphatase Total Protein Albumin Antibody Screen Cancelled Crossmatch See Detail 08/28/17 08/28/17 08/28/17 05:35 05:35 06:00 WBC 5.7 RBC 3.86 Hgb 7.3 L Hct 24.8 L MCV 64.2 L MCH 18.8 L MCHC 29.3 L RDW 21.5 H Plt Count 352 MPV 8.2 Neutrophils % 58.1 Lymphocytes % 27.3 Monocytes % 11.5 H Eosinophils % 2.5 Basophils % 0.6 Hypochromia 2+ Platelet Estimate Adequate Polychromasia 1+ Anisocytosis 2+ Microcytosis 2+ PT with INR 12.70 H INR 1.12 Sodium 145 Potassium 3.7 Chloride 108 H Carbon Dioxide 29 Anion Gap 8 BUN 4 L Creatinine 0.6 Creat Clearance w eGFR > 60 Random Glucose 97 Calcium 8.7 Iron TIBC Iron Saturation Total Bilirubin 0.4 D AST 9 L ALT 15 Alkaline Phosphatase 82 Total Protein 6.3 L Albumin 3.2 L Antibody Screen Crossmatch Current Medications Generic Name Dose Route Start Last Admin Trade Name Jazmin PRN Reason Stop Dose Admin Acetaminophen 1,000 mg 08/27/17 09:09 08/27/17 09:37 Tylenol - PO 1,000 mg Q8H PRN Administration PAIN LEVEL 1-5 Enoxaparin Sodium 40 mg 08/28/17 18:00 Lovenox - SQ DAILY EDGAR Furosemide 40 mg 08/28/17 12:21 Lasix Injection - IVPUSH 08/28/17 12:22 ONCE ONE ASSESSMENT/PLAN: 52 year-old woman with no significant PMH placed on observation for an episode of dizziness and vomiting at work. Has been experiencing episodes of dizziness for the past 4 to 6 weeks. 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 Hill following --Dr. Rao following Chronic blood loss anemia Microcytic anemia --transfused 1U PRBC 2/ with modest response 6.5-->7.5 --Hgb 7.3 today; transfuse 2U PRBC, Lasix IV 40mg x 1 in between units Dizziness --likely secondary to blood loss anemia --cardiac workup unremarkable --ECG unremarkable; serial troponins negative; echo: LV normal; RV normal ; trace to mild MR; US carotids unremarkable; telemetry no events --US transvaginal wnl --TSH wnl --CT head: mild volume loss, otherwise unremarkable --not orthostatic FEN Fluids: PO intake adequate Electrolytes: replete as indicated Nutrition: regular diet DVT prophylaxis: lovenox, oob, ambulation Dispo: this patient has required repeated transfusions for chronic but severe blood loss anemia likely secondary to newly diagnosed colon mass. She has been converted to inpatient status. Full code. Visit type - Emergency Visit Emergency Visit: Yes ED Registration Date: 08/26/17 Care time: The patient presented to the Emergency Department on the above date and was hospitalized for further evaluation of their emergent condition. - New Patient This patient is new to me today: No - Critical Care Critical Care patient: No
[2017-08-28] MEDS: ENOXAPARIN NA (PORCINE) 40 MG/0.4 ML DISP.SYRIN SQ SCH (18:28)
[2017-08-28] MEDS ORDERED: FUROSEMIDE 40 MG/4 ML INJECTABLE VIAL IVPUSH ONE (19:00)
--- NOTE | 2017-08-28 19:47 | PN ---
Progress Note (short form) - Note Progress Note: Patient seen , interviewed and examined. Discussed status with patient and with family at bedside, Near obstructing mass at 60 m. Presented with Fe++ deficiency anemia. CT - chest, abdomen , and pelvis- all negative. Patient aware of clinical situation. Wants to have surgery elsewhere. Await path.
[2017-08-29 07:23] LABS: BASO % 0.6 % (0-2.0); EOS % 3.2 % (0-4.5); HEMATOCRIT 35.1 % (32.4-45.2); HEMOGLOBIN 10.7 GM/dL (10.7-15.3); LYMPH % 17.4 % (8-40); MCH 20.8 pg (25.7-33.7); MCHC 30.4 g/dl (32.0-36.0); MEAN CELL VOLUME 68.4 fl (80-96); MONO % 9.7 % (3.8-10.2); NEUT % 69.1 % (42.8-82.8); PLATELET COUNT 368 K/MM3 (134-434); RBC 5.13 M/mm3 (3.60-5.2); WHITE BLOOD COUNT 8.9 K/mm3 (4.0-10.0)
[2017-08-29 07:52] LABS: ALBUMIN 3.8 g/dl (3.4-5.0); ANION GAP 10 (8-16); BILIRUBIN,TOTAL 1.3 mg/dL (0.2-1.0); BLOOD UREA NITROGEN 7 mg/dL (7-18); CALCIUM 8.7 mg/dL (8.5-10.1); CHLORIDE 101 mmol/L (98-107); CO2 30 mmol/L (21-32); CREATININE 0.7 mg/dL (0.55-1.02); GLUCOSE,RANDOM 91 mg/dL (74-106); MAGNESIUM 1.9 mg/dL (1.8-2.4); POTASSIUM 3.4 mmol/L (3.5-5.1); SGOT/AST 11 U/L (15-37); SGPT/ALT 15 U/L (12-78); SODIUM 141 mmol/L (136-145); TOT PROT 7.3 g/dl (6.4-8.2)
[2017-08-29 07:53] LABS: ALK PHOS 104 U/L (45-117)
--- NOTE | 2017-08-29 08:34 | PN ---
Progress Note, Physician History of Present Illness: No events. Tolerating diet. Asymptomatic. CT C/A/P report noted - Current Medication List Current Medications: Active Medications Acetaminophen (Tylenol -) 1,000 mg PO Q8H PRN PRN Reason: PAIN LEVEL 1-5 Last Admin: 08/27/17 09:37 Dose: 1,000 mg Enoxaparin Sodium (Lovenox -) 40 mg SQ DAILY EDGAR Last Admin: 08/28/17 18:28 Dose: 40 mg Potassium Chloride (K-Dur -) 40 meq PO ONCE ONE Stop: 08/29/17 09:01 - Objective Vital Signs: Vital Signs Temperature 98.3 F 08/29/17 06:00 Pulse Rate 85 08/29/17 06:00 Respiratory Rate 20 08/29/17 06:00 Blood Pressure 103/66 08/29/17 06:00 O2 Sat by Pulse Oximetry (%) 100 08/28/17 23:00 Constitutional: Yes: Well Nourished, No Distress, Calm Eyes: Yes: Conjunctiva Clear HENT: Yes: Atraumatic Neck: Yes: Supple Cardiovascular: Yes: Regular Rate and Rhythm Respiratory: Yes: Regular Gastrointestinal: Yes: Soft. No: Distention, Melena, Rectal Bleeding, Tenderness Neurological: Yes: Alert, Oriented Labs: CBC, BMP 08/29/17 07:14 08/29/17 07:14 INR, PTT INR 1.12 (0.82-1.09) 08/28/17 06:00 CBCD WBC 8.9 K/mm3 (4.0-10.0) D 08/29/17 07:14 RBC 5.13 M/mm3 (3.60-5.2) D 08/29/17 07:14 Hgb 10.7 GM/dL (10.7-15.3) D 08/29/17 07:14 Hct 35.1 % (32.4-45.2) D 08/29/17 07:14 MCV 68.4 fl (80-96) L D 08/29/17 07:14 MCHC 30.4 g/dl (32.0-36.0) L 08/29/17 07:14 RDW 26.0 % (11.6-15.6) H 08/29/17 07:14 Plt Count 368 K/MM3 (134-434) 08/29/17 07:14 MPV 9.0 fl (7.5-11.1) 08/29/17 07:14 CMP Sodium 141 mmol/L (136-145) 08/29/17 07:14 Potassium 3.4 mmol/L (3.5-5.1) L 08/29/17 07:14 Chloride 101 mmol/L (98-107) 08/29/17 07:14 Carbon Dioxide 30 mmol/L (21-32) 08/29/17 07:14 Anion Gap 10 (8-16) 08/29/17 07:14 BUN 7 mg/dL (7-18) 08/29/17 07:14 Creatinine 0.7 mg/dL (0.55-1.02) 08/29/17 07:14 Creat Clearance w eGFR > 60 (>60) 08/29/17 07:14 Calcium 8.7 mg/dL (8.5-10.1) 08/29/17 07:14 Total Bilirubin 1.3 mg/dL (0.2-1.0) H D 08/29/17 07:14 AST 11 U/L (15-37) L 08/29/17 07:14 ALT 15 U/L (12-78) 08/29/17 07:14 Alkaline Phosphatase 104 U/L (45-117) 08/29/17 07:14 Total Protein 7.3 g/dl (6.4-8.2) 08/29/17 07:14 Albumin 3.8 g/dl (3.4-5.0) 08/29/17 07:14 - ....Imaging Cat Scan: Report Reviewed Problem List - Problems (1) Microcytic hypochromic anemia Code(s): D50.9 - IRON DEFICIENCY ANEMIA, UNSPECIFIED (2) Iron deficiency anemia due to chronic blood loss Code(s): D50.0 - IRON DEFICIENCY ANEMIA SECONDARY TO BLOOD LOSS (CHRONIC) (3) Symptomatic anemia Code(s): D64.9 - ANEMIA, UNSPECIFIED (4) Colonic mass Code(s): K63.9 - DISEASE OF INTESTINE, UNSPECIFIED Assessment/Plan Colon mass. likely malignant. Pathology pending. Surgery and oncology follow up Clear liquid diet, or as per surgery The patient is aware of the above.
[2017-08-29] MEDS ORDERED: POTASSIUM CHLORIDE TABS 20 MEQ TABLET.ER (FP) PO ONE (09:00)
[2017-08-29] MEDS: ENOXAPARIN NA (PORCINE) 40 MG/0.4 ML DISP.SYRIN SQ SCH (09:51)
--- NOTE | 2017-08-29 11:11 | PN ---
Progress Note (short form) - Note Progress Note: Patient seen and examined Minimal cramps Small bowel movement Last Vital Signs Temp Pulse Resp BP Pulse Ox 98.3 F 85 20 103/66 100 08/29/17 06:00 08/29/17 06:00 08/29/17 06:00 08/29/17 06:00 08/28/17 23:00 HEENT: BRITTANY, EOM Intact Cor: RSR, No murmurs, No gallops Lungs: Clear to P&A Abd: Soft, Normal bowel sounds, No organomegaly Ext:No significant edema Skin: No rashes, Integument intact CBC, BMP 08/29/17 07:14 08/29/17 07:14 Impression: Path- Invasive adenoca- patient informed Pre-op CEA 1.4- more favorable CT scans - C-A-P no obvious mets Patient considering surgery at [facility] . She is getting names of possible surgeons from her colleagues. Need to discuss with GI urgency of surgery-- whether intra hospital transfer or out patient follow up.
--- NOTE | 2017-08-29 12:10 | PN ---
Physical Exam: SUBJECTIVE: Patient seen and examined at the bedside. States she feels well, denies abdominal pain, denies nausea or vomiting. OBJECTIVE: s/p 2 units of prbc with a stable hmg/hct Vital Signs Period Temp Pulse Resp BP Sys/Silva Pulse Ox Last 24 Hr 98.3 F-98.6 F 85-93 16-20 100-117/54-68 100-100 GENERAL: The patient is awake, alert, and fully oriented, in no acute distress. HEAD: Normal with no signs of trauma. EYES: PERRL, extraocular movements intact, sclera anicteric, conjunctiva clear. No ptosis. ENT: Ears normal, nares patent, oropharynx clear without exudates, moist mucous membranes. NECK: Trachea midline, full range of motion, supple. LUNGS: Breath sounds equal, clear to auscultation bilaterally, no wheezes, no crackles, no accessory muscle use. ABDOMEN: Soft, nontender, nondistended, normoactive bowel sounds, no guarding, no rebound, no hepatosplenomegaly, no masses. EXTREMITIES: 2+ pulses, warm, well-perfused, no edema. NEUROLOGICAL: Normal speech, gait not observed. PSYCH: Normal mood, normal affect. SKIN: Warm, dry, normal turgor, no rashes or lesions noted Laboratory Results - last 24 hr 08/26/17 08/26/17 08/28/17 14:15 15:15 09:52 WBC RBC Hgb Hct MCV MCH MCHC RDW Plt Count MPV Neutrophils % Lymphocytes % Monocytes % Eosinophils % Basophils % Sodium Potassium Chloride Carbon Dioxide Anion Gap BUN Creatinine Creat Clearance w eGFR Random Glucose Calcium Magnesium Total Bilirubin AST ALT Alkaline Phosphatase Total Protein Albumin Carcinoembryonic Ag 1.4 Blood Type O NEGATIVE Antibody Screen Negative Cancelled Crossmatch See Detail See Detail 08/29/17 08/29/17 07:14 07:14 WBC 8.9 D RBC 5.13 D Hgb 10.7 D Hct 35.1 D MCV 68.4 L D MCH 20.8 L MCHC 30.4 L RDW 26.0 H Plt Count 368 MPV 9.0 Neutrophils % 69.1 Lymphocytes % 17.4 D Monocytes % 9.7 Eosinophils % 3.2 Basophils % 0.6 Sodium 141 Potassium 3.4 L Chloride 101 Carbon Dioxide 30 Anion Gap 10 BUN 7 Creatinine 0.7 Creat Clearance w eGFR > 60 Random Glucose 91 Calcium 8.7 Magnesium 1.9 Total Bilirubin 1.3 H D AST 11 L ALT 15 Alkaline Phosphatase 104 Total Protein 7.3 Albumin 3.8 Carcinoembryonic Ag Blood Type Antibody Screen Crossmatch Active Medications Generic Name Dose Route Start Last Admin Trade Name Jazmin PRN Reason Stop Dose Admin Acetaminophen 1,000 mg 08/27/17 09:09 08/27/17 09:37 Tylenol - PO 1,000 mg Q8H PRN Administration PAIN LEVEL 1-5 Enoxaparin Sodium 40 mg 08/28/17 18:00 08/29/17 09:51 Lovenox - SQ 40 mg DAILY EDGAR Administration ASSESSMENT/PLAN: Patient is a 52 year old female with no reported past medical history. She was admitted to [facility] on 08/28/2017 for symptoms of dizziness, vomiting and increased facial pallor. During hospitalization, patient had a colonscopy which revealed a colon mass. She was also found to have symptomatic anemia and has received multiple units of prbcs. Hematology/Oncology: Colon mass seen on colonoscopy Pathology of mass pending, CEA pending CTAP reviewed Hematology/Oncology following GI following Patient to seek surgical consults either at [place] or another facility, she is deciding and currently getting names of surgeons We are helping her coordinate care As per GI, Patient has an impending obstruction, she also came in with hmg of 6.5, she should be transferred to another facility if she does not want to have surgery here. She is a bleeding risk. Chronic blood loss anemia Symptomatic anemia, resolved Microcytic anemia, acute Transfused 3 units of prbc since admission, hmg/hct now stable Received Lasix in between prbcs She denies shortness of breath, denies pain Dizziness, resolved Likely secondary to acute blood loss anemia Denies dizziness on exam Cardiac workup negative TSH normal, trops negative Echo reviewed Carotid negative No further dizziness FEN Fluids: PO adequate Electrolytes: monitor Nutrition: regular diet DVT prophylaxis: lovenox, oob, ambulation. Dispo: full code. Further discharge planning in progress. Visit type - Emergency Visit Emergency Visit: Yes ED Registration Date: 08/28/17 Care time: The patient presented to the Emergency Department on the above date and was hospitalized for further evaluation of their emergent condition. - New Patient This patient is new to me today: Yes Date on this admission: 08/30/17 - Critical Care Critical Care patient: No
--- NOTE | 2017-08-29 17:18 | PATH ---
Surgical Pathology Report Patient Name: KEHINDE SCHERER [facility]. Rec. #: [id number] /Age/Gender: 1965 (Age: 52) / F Account: [id number] Location: 4 SO PEDS/ADOL Taken: 08/28/2017 Received: 08/28/2017 Reported: 08/29/2017 Physicians: [facility]ab [facility] M[facility] Specimen(s) Received A: BX DUODENUM B: BX ANTRUM AND BODY C: BX GASTRIC POLYPS D: DESCENDING COLON POLYP E: BX 60 CM MASS F: BX SIGMOID POLYP Clinical History Preoperative diagnosis: Anemia Postoperative diagnosis: Gastric polyps, colon polyps, colon mass right colon Final Diagnosis A. DUODENUM, SECOND PORTION, BIOPSY: DUODENAL MUCOSA WITHOUT SIGNIFICANT PATHOLOGIC FINDINGS. B. STOMACH, ANTRUM AND BODY, BIOPSY: GASTRIC ANTRAL AND BODY MUCOSA WITH MILD CHRONIC GASTRITIS. IMMUNOHISTOCHEMICAL STAIN FOR H. PYLORI IS NEGATIVE. C. STOMACH, GASTRIC POLYPS, BIOPSY: FUNDIC GLAND POLYP(S). D. DESCENDING COLON, POLYP, BIOPSY: TUBULAR ADENOMA. E. COLON, 60 CM, MASS, BIOPSY: INVASIVE ADENOCARCINOMA, MODERATELY DIFFERENTIATED. SEE COMMENT. F. SIGMOID, POLYP, BIOPSY: TUBULAR ADENOMA. Comment: Additional studies for Mismatch repair proteins (MMR) are pending and will be reported as an addendum. Case seen interdepartmentally. Findings discussed with Dr. Quinn and relayed to Dr. Shanks. Electronically Signed Melisa Kay M.D. Addendum Reported: 09/02/2017 Addendum Diagnosis Immunohistochemical stains for MisMatch Repair Protein Analysis performed at [facility] in [place], [place] ([id number]) and interpreted at [facility] show the following: RESULTS: HMLH-1 INTACT NUCLEAR EXPRESSION HMSH-2 INTACT NUCLEAR EXPRESSION HMSH-6 INTACT NUCLEAR EXPRESSION PMS2 INTACT NUCLEAR EXPRESSION INTERPRETATION: No loss of nuclear expression of MMR proteins: low probability of microsatellite instability-high (MSI-H) Melisa Kay M.D. Gross Description A. Received in formalin, labeled "biopsy second portion of duodenum" are 2 osborn, irregular portions of soft tissue measuring 0.2 and 0.4 cm. in greatest dimension. The specimens are submitted in toto in one cassette. B. Received in formalin, labeled "biopsy antrum and body" are 2 osbron, irregular portions of soft tissue measuring 0.2 and 0.3 cm. in greatest dimension. The specimens are submitted in toto in one cassette. C. Received in formalin, labeled "biopsy gastric polyps" are 4 osborn, irregular portions of soft tissue ranging from 0.2-0.4 cm. in greatest dimension. The specimens are submitted in toto in one cassette. D. Received in formalin labeled "descending colon polyp," is a 1.0 x 0.8 x 0.2 cm aggregate of osborn soft tissue fragments. The formalin is filtered and the specimen is entirely submitted in one cassette. E. Received in formalin, labeled "biopsy 60 cm mass" are 7 osborn, irregular portions of soft tissue ranging from 0.1-0.3 cm. in greatest dimension. The specimens are submitted in toto in one cassette. F. Received in formalin, labeled "biopsy sigmoid polyp" are 3 osborn, irregular portions of soft tissue ranging from 0.1-0.2 cm. in greatest dimension. The specimens are submitted in toto in one cassette. 08/28/2017 [facility]
[2017-08-30 04:59] LABS: HGB SOLUBILITY Negative (Negative); Hgb A 98.6 % (96.4-98.8); Hgb C 0 % (0.0); Hgb F 0 % (0.0-2.0); Hgb S 0 % (0.0)
[2017-08-30 07:44] LABS: BASO % 0.3 % (0-2.0); EOS % 4.2 % (0-4.5); HEMATOCRIT 34.9 % (32.4-45.2); HEMOGLOBIN 10.6 GM/dL (10.7-15.3); LYMPH % 21.7 % (8-40); MCH 20.9 pg (25.7-33.7); MCHC 30.3 g/dl (32.0-36.0); MEAN CELL VOLUME 68.9 fl (80-96); MEAN PLT VOLUME 8.3 fl (7.5-11.1); MONO % 10.5 % (3.8-10.2); NEUT % 63.3 % (42.8-82.8); PLATELET COUNT 345 K/MM3 (134-434); RBC 5.06 M/mm3 (3.60-5.2); RDW 26.4 % (11.6-15.6); WHITE BLOOD COUNT 7.3 K/mm3 (4.0-10.0)
[2017-08-30 08:23] LABS: CHLORIDE 104 mmol/L (98-107); POTASSIUM 4.1 mmol/L (3.5-5.1); SODIUM 139 mmol/L (136-145)
[2017-08-30 08:30] LABS: ALBUMIN 3.5 g/dl (3.4-5.0); ALK PHOS 94 U/L (45-117); ANION GAP 9 (8-16); BILIRUBIN,TOTAL 0.9 mg/dL (0.2-1.0); BLOOD UREA NITROGEN 10 mg/dL (7-18); CALCIUM 8.5 mg/dL (8.5-10.1); CO2 26 mmol/L (21-32); CREATININE 0.7 mg/dL (0.55-1.02); GLUCOSE,RANDOM 98 mg/dL (74-106); SGOT/AST 7 U/L (15-37); SGPT/ALT 14 U/L (12-78); TOT PROT 6.9 g/dl (6.4-8.2)
--- NOTE | 2017-08-30 08:43 | PN ---
Physical Exam: SUBJECTIVE: Patient seen and examined. States she feels well, wants to have surgery elsewhere. Wants to go to [facility] Assured her that I will help facilitate this. Denies dizziness, no BM today, had small BM yesterday OBJECTIVE: I called [facility] cancer transfer center. Advised to call [phone] patient referral center, called, however office not open on weekends MF 830a to 530p. Patient aware, will discuss with Dr. Quinn. hmg/hct stable Vital Signs Period Temp Pulse Resp BP Sys/Silva Pulse Ox Last 24 Hr 98.2 F-98.7 F 75-96 16-20 106-116/64-80 94-100 GENERAL: The patient is awake, alert, and fully oriented, in no acute distress. HEAD: Normal with no signs of trauma. EYES: PERRL, extraocular movements intact, sclera anicteric, conjunctiva clear. No ptosis. ENT: Ears normal, nares patent, oropharynx clear without exudates, moist mucous membranes. NECK: Trachea midline, full range of motion, supple. LUNGS: Breath sounds equal, clear to auscultation bilaterally, no wheezes, no crackles, no accessory muscle use. ABDOMEN: Soft, nontender, nondistended, normoactive bowel sounds, no guarding, no rebound, no hepatosplenomegaly, no masses. EXTREMITIES: 2+ pulses, warm, well-perfused, no edema. NEUROLOGICAL: Normal speech, gait not observed. PSYCH: Normal mood, normal affect. SKIN: Warm, dry, normal turgor, no rashes or lesions noted Laboratory Results - last 24 hr 08/26/17 08/26/17 08/27/17 14:15 22:00 05:35 WBC RBC Hgb Hct MCV MCH MCHC RDW Plt Count MPV Neutrophils % Lymphocytes % Monocytes % Eosinophils % Basophils % Hemoglobin A 98.6 Hemoglobin A2 1.4 L Hemoglobin C 0 Hemoglobin S 0 Variant Hemoglobin TNP Hemoglobin Interpret Maternal Rh 0 Hemoglobin Solubility Negative Sodium Potassium Chloride Carbon Dioxide Anion Gap BUN Creatinine Creat Clearance w eGFR Random Glucose Calcium Total Bilirubin AST ALT Alkaline Phosphatase Total Protein Albumin Globulin 3.0 Beta Globulins 1.2 STUART & SPEP Interp Total Protein (STUART) 6.1 Albumin (STUART) 3.1 Albumin/Globulin (STUART) 1.1 Qoyfe-0-Azblsinrk STUART 0.3 Vzdxz-6-Hffhludfo STUART 0.6 Gamma Globulins (STUART) 0.9 STUART M-Bharath Not observed STUART Comments IEP IgG 852 IEP IgA 360 H IEP IgM 75 Blood Type O NEGATIVE Antibody Screen Negative Crossmatch See Detail 08/30/17 08/30/17 06:30 06:30 WBC 7.3 RBC 5.06 Hgb 10.6 L Hct 34.9 MCV 68.9 L MCH 20.9 L MCHC 30.3 L RDW 26.4 H Plt Count 345 MPV 8.3 Neutrophils % 63.3 Lymphocytes % 21.7 D Monocytes % 10.5 H Eosinophils % 4.2 Basophils % 0.3 Hemoglobin A Hemoglobin A2 Hemoglobin C Hemoglobin S Variant Hemoglobin Hemoglobin Interpret Maternal Rh Hemoglobin Solubility Sodium 139 Potassium 4.1 Chloride 104 Carbon Dioxide 26 Anion Gap 9 BUN 10 Creatinine 0.7 Creat Clearance w eGFR > 60 Random Glucose 98 Calcium 8.5 Total Bilirubin 0.9 D AST 7 L ALT 14 Alkaline Phosphatase 94 Total Protein 6.9 Albumin 3.5 Globulin Beta Globulins STUART & SPEP Interp Total Protein (STUART) Albumin (STUART) Albumin/Globulin (STUART) Uwjyh-1-Qdbpztlga STUART Lvgjr-3-Rzrkwpkqv STUART Gamma Globulins (STUART) STUART M-Bharath STUART Comments IEP IgG IEP IgA IEP IgM Blood Type Antibody Screen Crossmatch Active Medications Generic Name Dose Route Start Last Admin Trade Name Freq PRN Reason Stop Dose Admin Acetaminophen 1,000 mg 08/27/17 09:09 08/27/17 09:37 Tylenol - PO 1,000 mg Q8H PRN Administration PAIN LEVEL 1-5 Enoxaparin Sodium 40 mg 08/28/17 18:00 08/29/17 09:51 Lovenox - SQ 40 mg DAILY EDGAR Administration ASSESSMENT/PLAN: Patient is a 52 year old female with no reported past medical history. She was admitted to [facility] on 08/28/2017 for symptoms of dizziness, vomiting and increased facial pallor. During hospitalization, patient had a colonscopy which revealed a colon mass. She was also found to have symptomatic anemia and has received multiple units of prbcs. Pathology report: A. duodenum biopsy, mucosa without significant path. finding b. stomach, antrum and body biopsy: astric antral and body mucosa with mild chronic gastritis strain for h pylori negative c. stomach, gastric polyps, biopsy: fundic gland polyps d. descending colon, polyp biopsy: tubular adenoma e. Colon 60cm mass biopsy: invasive adenocarcinoma, mod. differentiated. f. sigmoid polyp, biopsy: tubular adenoma. Hematology/Oncology: Colon mass seen on colonoscopy Pathology above CTAP reviewed Hematology/Oncology following GI following As per GI, Patient has an impending obstruction, she also came in with hmg of 6.5, she should be transferred to another facility if she does not want to have surgery here. She is a bleeding risk. Patient wants transfer to to [facility] Chronic blood loss anemia, resolved Symptomatic anemia, resolved Microcytic anemia, acute Transfused 3 units of prbc since admission, hmg/hct now stable She denies shortness of breath, denies pain, denies dizziness Dizziness, resolved Likely secondary to acute blood loss anemia Denies dizziness on exam Cardiac workup negative TSH normal, trops negative Echo reviewed Carotid negative No further dizziness\ d/c tele FEN Fluids: PO adequate Electrolytes: monitor Nutrition: regular diet DVT prophylaxis: lovenox, oob, ambulation. Dispo: full code. Further discharge planning in progress. Visit type - Emergency Visit Emergency Visit: Yes ED Registration Date: 08/28/17 Care time: The patient presented to the Emergency Department on the above date and was hospitalized for further evaluation of their emergent condition. - New Patient This patient is new to me today: No - Critical Care Critical Care patient: No - Discharge Referral [facility]erred to [facility] Med P.C.: No
[2017-08-30] MEDS: ENOXAPARIN NA (PORCINE) 40 MG/0.4 ML DISP.SYRIN SQ SCH (10:04)
--- NOTE | 2017-08-30 16:05 | PN ---
Progress Note (short form) - Note Progress Note: CC: dizziness. s: no recurrence of dizziness. no cp sob palps. has plan for transfer to [facility] on friday for further evaluation of newly diagnosed colon cancer o: Current Medications Acetaminophen (Tylenol -) 1,000 mg PO Q8H PRN PRN Reason: PAIN LEVEL 1-5 Last Admin: 08/27/17 09:37 Dose: 1,000 mg Enoxaparin Sodium (Lovenox -) 40 mg SQ DAILY EDGAR Last Admin: 08/30/17 10:04 Dose: 40 mg Vital Signs - 24 hr 08/29/17 08/29/17 08/30/17 20:09 21:00 06:00 Temperature 98.2 F 98.7 F Pulse Rate 96 H 75 Respiratory 20 20 Rate Blood Pressure 116/77 106/68 O2 Sat by Pulse 94 L Oximetry (%) 08/30/17 14:00 Temperature 98.1 F Pulse Rate 82 Respiratory 20 Rate Blood Pressure 117/82 O2 Sat by Pulse Oximetry (%) Intake & Output 08/28/17 08/29/17 08/30/17 08/31/17 07:59 07:59 07:59 07:59 Intake Total 1550 1150 500 Balance 1550 1150 500 nad no jvd rrr s1s1 no mrg cta bl nl eff + bs soft nt nd aaox3 no le e/c/c no carotid bruits, + dp/pt no jaundice diaphoresis CBC, BMP 08/30/17 06:30 08/30/17 06:30 cxr: clear lungs ecg: sr, nl intervals, no ischemic changes prior tele: sr echo 08/2017: nl lv/rv, no sig valve path a/p: 52 f no sig pmhx here with dizziness. dizziness, weakness, anemia: -sxs were likely due to anemia 2/2 newly diagnosied colon ca. Now s/p transfusion. -no suggestion of cardiac etiology -ecg and echo unremarkable, trop negx2, tele benign, ortho vs's nl -no recurrence of dizziness. stable from a CV perspective for transfer to [facility]
--- NOTE | 2017-08-30 17:12 | PN ---
GI Progress Note Subjective: No acute events No abdominal pain - Objective Vital Signs: Vital Signs Temperature 98.1 F 08/30/17 14:00 Pulse Rate 82 08/30/17 14:00 Respiratory Rate 20 08/30/17 14:00 Blood Pressure 117/82 08/30/17 14:00 O2 Sat by Pulse Oximetry (%) 94 L 08/29/17 21:00 Constitutional: Calm Eyes: No: Sclera Icterus Cardiovascular: Yes: Regular Rate and Rhythm. No: Murmur Respiratory: No: CTA Bilaterally Gastrointestinal Inspection: Yes: Scars (Pelvic surgical scar). No: Distention ...Auscultate: Yes: Normoactive Bowel Sounds ...Palpate: No: Hepatomegaly, Splenomegaly, Tenderness ...Percussion: No: Tympanitic Edema: No (No LE edema) Neurological: Yes: Alert, Oriented Labs: CBC, BMP 08/30/17 06:30 08/30/17 06:30 INR, PTT INR 1.12 (0.82-1.09) 08/28/17 06:00 Hepatic Panel Total Bilirubin 0.9 mg/dL (0.2-1.0) D 08/30/17 06:30 AST 7 U/L (15-37) L 08/30/17 06:30 ALT 14 U/L (12-78) 08/30/17 06:30 Alkaline Phosphatase 94 U/L (45-117) 08/30/17 06:30 Albumin 3.5 g/dl (3.4-5.0) 08/30/17 06:30 Problem List - Problems (1) Colonic mass Assessment/Plan: Near obstructing circumferential moderately differentiated AdenoCa found at 60cm from the anal verge Clinically appears well Awaiting transfer [place] [facility] Code(s): K63.9 - DISEASE OF INTESTINE, UNSPECIFIED
[2017-08-31 00:06] LABS: GLIADIN ANTIBODY IGA 12 units (0-19); GLIADIN ANTIBODY IGG 2 units (0-19); TRANSGLUTAMINASE IGG < 2 U/mL (0-5)
[2017-08-31 08:18] LABS: ALBUMIN 3.5 g/dl (3.4-5.0); ANION GAP 8 (8-16); BLOOD UREA NITROGEN 10 mg/dL (7-18); CALCIUM 9.2 mg/dL (8.5-10.1); CHLORIDE 103 mmol/L (98-107); CO2 28 mmol/L (21-32); GLUCOSE,RANDOM 103 mg/dL (74-106); POTASSIUM 4.3 mmol/L (3.5-5.1); SODIUM 139 mmol/L (136-145)
[2017-08-31 08:20] LABS: ALK PHOS 92 U/L (45-117); BASO % 0.3 % (0-2.0); BILIRUBIN,TOTAL 0.7 mg/dL (0.2-1.0); CREATININE 0.6 mg/dL (0.55-1.02); EOS % 3.6 % (0-4.5); HEMATOCRIT 36.2 % (32.4-45.2); HEMOGLOBIN 10.9 GM/dL (10.7-15.3); LYMPH % 18.5 % (8-40); MCH 20.7 pg (25.7-33.7); MCHC 30.2 g/dl (32.0-36.0); MEAN CELL VOLUME 68.6 fl (80-96); MEAN PLT VOLUME 8.5 fl (7.5-11.1); NEUT % 68.6 % (42.8-82.8); PLATELET COUNT 350 K/MM3 (134-434); RBC 5.29 M/mm3 (3.60-5.2); RDW 27.1 % (11.6-15.6); SGOT/AST 11 U/L (15-37); SGPT/ALT 15 U/L (12-78); TOT PROT 7.3 g/dl (6.4-8.2); WHITE BLOOD COUNT 7.1 K/mm3 (4.0-10.0)
[2017-08-31] MEDS: ENOXAPARIN NA (PORCINE) 40 MG/0.4 ML DISP.SYRIN SQ SCH (09:08)
--- NOTE | 2017-08-31 10:52 | PN ---
Physical Exam: SUBJECTIVE: Patient seen and examined at the bedside. Sitting in chair. Denies pain, denies abdominal discomfort other than "soreness" on RUQ. Denies nausea or vomiting. Had 1 small BM this morning and then another one after that she described as a "thinner" bowel movement. No cramps OBJECTIVE: Last night I spoke to Abad Arriola MD [phone], resident (GI Surgery) @ [facility]. Informed me that his attending, Dr. Travis will reach out to me regarding making an appointment for patient early next week. I updated Mrs Bull. Vital Signs Period Temp Pulse Resp BP Sys/Silva Pulse Ox Last 24 Hr 97.9 F-98.4 F 77-85 16-20 112-133/70-82 98 GENERAL: The patient is awake, alert, and fully oriented, in no acute distress. HEAD: Normal with no signs of trauma. EYES: PERRL, extraocular movements intact, sclera anicteric, conjunctiva clear. No ptosis. ENT: Ears normal, nares patent, oropharynx clear without exudates, moist mucous membranes. NECK: Trachea midline, full range of motion, supple. LUNGS: Breath sounds equal, clear to auscultation bilaterally, no wheezes, no crackles, no accessory muscle use. ABDOMEN: Soft, nontender, nondistended, normoactive bowel sounds, no guarding, no rebound, no hepatosplenomegaly, no masses. EXTREMITIES: 2+ pulses, warm, well-perfused, no edema. NEUROLOGICAL: Normal speech, gait not observed. PSYCH: Normal mood, normal affect. SKIN: Warm, dry, normal turgor, no rashes or lesions noted Laboratory Results - last 24 hr 08/29/17 08/31/17 08/31/17 07:14 06:30 06:30 WBC 7.1 RBC 5.29 H Hgb 10.9 Hct 36.2 MCV 68.6 L MCH 20.7 L MCHC 30.2 L RDW 27.1 H Plt Count 350 MPV 8.5 Neutrophils % 68.6 Lymphocytes % 18.5 Monocytes % 9.0 Eosinophils % 3.6 Basophils % 0.3 Sodium 139 Potassium 4.3 Chloride 103 Carbon Dioxide 28 Anion Gap 8 BUN 10 Creatinine 0.6 Creat Clearance w eGFR > 60 Random Glucose 103 Calcium 9.2 Total Bilirubin 0.7 D AST 11 L ALT 15 Alkaline Phosphatase 92 Total Protein 7.3 Albumin 3.5 IgA 402 H Endomysial IgA Ab Negative Tiss Transglutamin IgG < 2 Tiss Transglutamin IgA <2 Anti-Gliadin IgG Ab 2 Anti-Gliadin IgA Ab 12 Active Medications Generic Name Dose Route Start Last Admin Trade Name Freq PRN Reason Stop Dose Admin Acetaminophen 1,000 mg 08/27/17 09:09 08/27/17 09:37 Tylenol - PO 1,000 mg Q8H PRN Administration PAIN LEVEL 1-5 Enoxaparin Sodium 40 mg 08/28/17 18:00 08/31/17 09:08 Lovenox - SQ 40 mg DAILY EDGAR Administration ASSESSMENT/PLAN: Patient is a 52 year old female with no reported past medical history. She was admitted to [facility] on 08/28/2017 for symptoms of dizziness, vomiting and increased facial pallor. During hospitalization, patient had a colonscopy which revealed a colon mass. She was also found to have symptomatic anemia and has received multiple units of prbcs. Pathology report: A. duodenum biopsy, mucosa without significant path. finding b. stomach, antrum and body biopsy: astric antral and body mucosa with mild chronic gastritis strain for h pylori negative c. stomach, gastric polyps, biopsy: fundic gland polyps d. descending colon, polyp biopsy: tubular adenoma e. Colon 60cm mass biopsy: invasive adenocarcinoma, mod. differentiated. f. sigmoid polyp, biopsy: tubular adenoma. Hematology/Oncology: Colon mass seen on colonoscopy Pathology above CTAP reviewed Hematology/Oncology following GI following As per GI, Patient has an impending obstruction, she also came in with hmg of 6.5, she should be transferred to another facility if she does not want to have surgery here. She is a bleeding risk. Patient wants transfer to to [facility]. Spoke to resident yesterday, attending Dr. Travis, will contact on Friday Chronic blood loss anemia, resolved Symptomatic anemia, resolved Microcytic anemia, acute Transfused 3 units of prbc since admission, hmg/hct now stable She denies shortness of breath, denies pain, denies dizziness Dizziness, resolved Likely secondary to acute blood loss anemia Denies dizziness on exam Cardiac workup negative TSH normal, trops negative Echo reviewed Carotid negative No further dizziness d/c tele F.E.N Fluids: PO adequate Electrolytes: monitor Nutrition: regular diet Prophylaxis: DVT: Lovenox GI: deferred Dispo: full code. Further discharge planning in progress. Likely transfer to [facility] tomorrow vs. setting up appointment early this week at [facility] for further care. Patient aware and in agreement. Visit type - Emergency Visit Emergency Visit: Yes ED Registration Date: 08/28/17 Care time: The patient presented to the Emergency Department on the above date and was hospitalized for further evaluation of their emergent condition. - New Patient This patient is new to me today: No - Critical Care Critical Care patient: No - Discharge Referral Referred to [facility] Med P.C.: No
[2017-09-01 06:57] LABS: BASO % 0.5 % (0-2.0); EOS % 4.5 % (0-4.5); HEMATOCRIT 35.4 % (32.4-45.2); HEMOGLOBIN 10.5 GM/dL (10.7-15.3); LYMPH % 24.2 % (8-40); MCH 20.8 pg (25.7-33.7); MCHC 29.6 g/dl (32.0-36.0); MEAN CELL VOLUME 70.4 fl (80-96); MEAN PLT VOLUME 8.7 fl (7.5-11.1); MONO % 9.8 % (3.8-10.2); PLATELET COUNT 317 K/MM3 (134-434); RBC 5.04 M/mm3 (3.60-5.2); RDW 26.6 % (11.6-15.6)
[2017-09-01 07:17] LABS: ALBUMIN 3.4 g/dl (3.4-5.0); ANION GAP 8 (8-16); BLOOD UREA NITROGEN 9 mg/dL (7-18); CHLORIDE 104 mmol/L (98-107); CO2 28 mmol/L (21-32); GLUCOSE,RANDOM 105 mg/dL (74-106); MAGNESIUM 2.1 mg/dL (1.8-2.4); POTASSIUM 4.3 mmol/L (3.5-5.1); SODIUM 140 mmol/L (136-145)
[2017-09-01 07:23] LABS: ALK PHOS 88 U/L (45-117); BILIRUBIN,TOTAL 0.6 mg/dL (0.2-1.0); CALCIUM 8.8 mg/dL (8.5-10.1); CREATININE 0.7 mg/dL (0.55-1.02); SGOT/AST 10 U/L (15-37); SGPT/ALT 14 U/L (12-78); TOT PROT 6.8 g/dl (6.4-8.2)
--- NOTE | 2017-09-01 08:35 | PN ---
Physical Exam: SUBJECTIVE: Patient seen and examined, no BM today, no cramping, eager to get surgery done. OBJECTIVE: [address] Baker (surgeon @ [facility]), office opens at 9am, reassured Mrs Bull will call [facility] at 9am and then update her Goal is to get her transferred today vs. a surgery appt. I spoke to Dr. Quinn and Dr. Herron and discussed same with them. [phone] Baker office. His office asked that I called Patient Access @ [facility] [phone] to provide insurance information. Discussed with Lissett ALLISON who provided the information, and more paperwork/ imaging requested by [facility]>all sent via fax no. provided by [facility] 10:00 Called [facility], spoke to Elle/Patient Access. Patient's file is under review, will call us back once ins, paperwork reviewed. I provided my cell phone no. [phone] Received call from [facility], patient has appointment this September 04 at 8:[address] Amrit Christian. Patient needs the pathology report slides which we will obtain tomorrow and Colonoscopy imaging. Patient will be discharged today. Vital Signs Period Temp Pulse Resp BP Sys/Silva Pulse Ox Last 24 Hr 97.7 F-98.5 F 74-95 16-18 112-130/60-87 98-99 GENERAL: The patient is awake, alert, and fully oriented, in no acute distress. HEAD: Normal with no signs of trauma. EYES: PERRL, extraocular movements intact, sclera anicteric, conjunctiva clear. No ptosis. ENT: Ears normal, nares patent, oropharynx clear without exudates, moist mucous membranes. NECK: Trachea midline, full range of motion, supple. LUNGS: Breath sounds equal, clear to auscultation bilaterally, no wheezes, no crackles, no accessory muscle use. ABDOMEN: Soft, nontender, nondistended, normoactive bowel sounds, no guarding, no rebound, no hepatosplenomegaly, no masses. EXTREMITIES: 2+ pulses, warm, well-perfused, no edema. NEUROLOGICAL: Normal speech, gait not observed. PSYCH: Normal mood, normal affect. SKIN: Warm, dry, normal turgor, no rashes or lesions noted Laboratory Results - last 24 hr 08/26/17 09/01/17 09/01/17 14:15 06:37 06:37 WBC 6.0 RBC 5.04 Hgb 10.5 L Hct 35.4 MCV 70.4 L MCH 20.8 L MCHC 29.6 L RDW 26.6 H Plt Count 317 MPV 8.7 Neutrophils % 61.0 Lymphocytes % 24.2 D Monocytes % 9.8 Eosinophils % 4.5 Basophils % 0.5 Sodium 140 Potassium 4.3 Chloride 104 Carbon Dioxide 28 Anion Gap 8 BUN 9 Creatinine 0.7 Creat Clearance w eGFR > 60 Random Glucose 105 Calcium 8.8 Magnesium 2.1 Total Bilirubin 0.6 AST 10 L ALT 14 Alkaline Phosphatase 88 Total Protein 6.8 Albumin 3.4 Blood Type O NEGATIVE Antibody Screen Negative Crossmatch See Detail Active Medications Generic Name Dose Route Start Last Admin Trade Name Freq PRN Reason Stop Dose Admin Acetaminophen 1,000 mg 08/27/17 09:09 08/27/17 09:37 Tylenol - PO 1,000 mg Q8H PRN Administration PAIN LEVEL 1-5 Enoxaparin Sodium 40 mg 08/28/17 18:00 08/31/17 09:08 Lovenox - SQ 40 mg DAILY EDGAR Administration ASSESSMENT/PLAN: Patient is a 52 year old female with no reported past medical history. She was admitted to [facility] on 08/28/2017 for symptoms of dizziness, vomiting and increased facial pallor. During hospitalization, patient had a colonscopy which revealed a colon mass. She was also found to have symptomatic anemia and has received multiple units of prbcs. Colonoscopy report: left colon mass, biopsy Pathology report: A. duodenum biopsy, mucosa without significant path. finding b. stomach, antrum and body biopsy: astric antral and body mucosa with mild chronic gastritis strain for h pylori negative c. stomach, gastric polyps, biopsy: fundic gland polyps d. descending colon, polyp biopsy: tubular adenoma e. Colon 60cm mass biopsy: invasive adenocarcinoma, mod. differentiated. f. sigmoid polyp, biopsy: tubular adenoma. Hematology/Oncology: Colon mass seen on colonoscopy Pathology above CTAP reviewed Hematology/Oncology following GI following Patient wants transfer to to [facility]. Calls placed to [employer], insurance and chart sent to them, awaiting call back. Chronic blood loss anemia, resolved Symptomatic anemia, resolved Microcytic anemia, resolved Transfused 3 units of prbc since admission, hmg/hct now stable She denies shortness of breath, denies pain, denies dizziness Dizziness, resolved Likely secondary to acute blood loss anemia Denies dizziness on exam Cardiac workup negative TSH normal, trops negative Echo reviewed Carotid negative No further dizziness d/c tele F.E.N Fluids: PO adequate Electrolytes: monitor Nutrition: regular diet Prophylaxis: DVT: Lovenox GI: deferred Dispo: full code. Discharge planning to [facility] in progress.
--- NOTE | 2017-09-01 08:39 | PN ---
Progress Note, Physician - Current Medication List Current Medications: Active Medications Acetaminophen (Tylenol -) 1,000 mg PO Q8H PRN PRN Reason: PAIN LEVEL 1-5 Last Admin: 08/27/17 09:37 Dose: 1,000 mg Enoxaparin Sodium (Lovenox -) 40 mg SQ DAILY EDGAR Last Admin: 08/31/17 09:08 Dose: 40 mg - Objective Vital Signs: Vital Signs Temperature 98.3 F 09/01/17 06:00 Pulse Rate 77 09/01/17 06:00 Respiratory Rate 16 09/01/17 06:00 Blood Pressure 112/60 09/01/17 06:00 O2 Sat by Pulse Oximetry (%) 99 08/31/17 21:00 Labs: CBC, BMP 09/01/17 06:37 09/01/17 06:37 INR, PTT INR 1.12 (0.82-1.09) 08/28/17 06:00 Assessment/Plan cxr: clear lungs ecg: sr, nl intervals, no ischemic changes echo 08/2017: nl lv/rv, no sig valve path a/p: 52 f no sig pmhx here with dizziness. dizziness, weakness, anemia: -sxs were likely due to anemia 2/2 newly diagnosied colon ca. Now s/p transfusion. -no suggestion of cardiac etiology -ecg and echo unremarkable, trop negx2, tele benign, ortho vs's nl -no recurrence of dizziness. stable from a CV perspective for transfer to [facility] D/C TELE
[2017-09-01] MEDS: ENOXAPARIN NA (PORCINE) 40 MG/0.4 ML DISP.SYRIN SQ SCH (09:26)
--- NOTE | 2017-09-01 09:46 | PN ---
Progress Note, Physician History of Present Illness: No events. Tolerating diet. Asymptomatic. Pathology and CT C/A/P report noted. Pt is in process of being scheduled with Dr. Amrit Christian at [facility] next week. - Current Medication List Current Medications: Active Medications Acetaminophen (Tylenol -) 1,000 mg PO Q8H PRN PRN Reason: PAIN LEVEL 1-5 Last Admin: 08/27/17 09:37 Dose: 1,000 mg Enoxaparin Sodium (Lovenox -) 40 mg SQ DAILY EDGAR Last Admin: 09/01/17 09:26 Dose: 40 mg - Objective Vital Signs: Vital Signs Temperature 98.3 F 09/01/17 06:00 Pulse Rate 77 09/01/17 06:00 Respiratory Rate 16 09/01/17 06:00 Blood Pressure 112/60 09/01/17 06:00 O2 Sat by Pulse Oximetry (%) 99 08/31/17 21:00 Constitutional: Yes: Well Nourished, No Distress, Calm Eyes: Yes: Conjunctiva Clear HENT: Yes: Atraumatic Neck: Yes: Supple Gastrointestinal: Yes: Soft. No: Distention, Melena, Tenderness, Vomiting Neurological: Yes: Alert, Oriented Labs: CBC, BMP 09/01/17 06:37 09/01/17 06:37 INR, PTT INR 1.12 (0.82-1.09) 08/28/17 06:00 CBCD WBC 6.0 K/mm3 (4.0-10.0) 09/01/17 06:37 RBC 5.04 M/mm3 (3.60-5.2) 09/01/17 06:37 Hgb 10.5 GM/dL (10.7-15.3) L 09/01/17 06:37 Hct 35.4 % (32.4-45.2) 09/01/17 06:37 MCV 70.4 fl (80-96) L 09/01/17 06:37 MCHC 29.6 g/dl (32.0-36.0) L 09/01/17 06:37 RDW 26.6 % (11.6-15.6) H 09/01/17 06:37 Plt Count 317 K/MM3 (134-434) 09/01/17 06:37 MPV 8.7 fl (7.5-11.1) 09/01/17 06:37 CMP Sodium 140 mmol/L (136-145) 09/01/17 06:37 Potassium 4.3 mmol/L (3.5-5.1) 09/01/17 06:37 Chloride 104 mmol/L (98-107) 09/01/17 06:37 Carbon Dioxide 28 mmol/L (21-32) 09/01/17 06:37 Anion Gap 8 (8-16) 09/01/17 06:37 BUN 9 mg/dL (7-18) 09/01/17 06:37 Creatinine 0.7 mg/dL (0.55-1.02) 09/01/17 06:37 Creat Clearance w eGFR > 60 (>60) 09/01/17 06:37 Calcium 8.8 mg/dL (8.5-10.1) 09/01/17 06:37 Total Bilirubin 0.6 mg/dL (0.2-1.0) 09/01/17 06:37 AST 10 U/L (15-37) L 09/01/17 06:37 ALT 14 U/L (12-78) 09/01/17 06:37 Alkaline Phosphatase 88 U/L (45-117) 09/01/17 06:37 Total Protein 6.8 g/dl (6.4-8.2) 09/01/17 06:37 Albumin 3.4 g/dl (3.4-5.0) 09/01/17 06:37 Problem List - Problems (1) Microcytic hypochromic anemia Code(s): D50.9 - IRON DEFICIENCY ANEMIA, UNSPECIFIED (2) Iron deficiency anemia due to chronic blood loss Code(s): D50.0 - IRON DEFICIENCY ANEMIA SECONDARY TO BLOOD LOSS (CHRONIC) (3) Symptomatic anemia Code(s): D64.9 - ANEMIA, UNSPECIFIED (4) Colonic mass Code(s): K63.9 - DISEASE OF INTESTINE, UNSPECIFIED Assessment/Plan Soft diet Fax all the required docs to the [facility] scheduling service in progress Dr Anderson @ [facility] next week
[2017-09-01 13:38] VITALS: BP 131/81; PULSE 86; TEMP 98.1
--- NOTE | 2017-09-01 16:59 | DS ---
Physical Exam: SUBJECTIVE: Patient to be discharged today with follow up this September 04, 0830am with Dr. Manuel Pardo (GI surgery @ [facility]) Patient is in agreement to follow up at [facility]. OBJECTIVE: Vital Signs Period Temp Pulse Resp BP Sys/Silva Pulse Ox Last 24 Hr 97.7 F-98.3 F 74-99 16-18 112-131/60-87 99-99 PHYSICAL EXAM GENERAL: The patient is awake, alert, and fully oriented, in no acute distress. HEAD: Normal with no signs of trauma. EYES: PERRL, extraocular movements intact, sclera anicteric, conjunctiva clear. No ptosis. ENT: Ears normal, nares patent, oropharynx clear without exudates, moist mucous membranes. NECK: Trachea midline, full range of motion, supple. LUNGS: Breath sounds equal, no accessory muscle use. ABDOMEN: Soft, nontender, nondistended, normoactive bowel sounds, no guarding, no rebound, no hepatosplenomegaly, no masses. EXTREMITIES: no edema. NEUROLOGICAL: Normal speech, steady gait. PSYCH: Normal mood, normal affect. SKIN: Warm, dry, normal turgor, no rashes or lesions noted LABS Laboratory Results - last 24 hr 08/26/17 09/01/17 09/01/17 14:15 06:37 06:37 WBC 6.0 RBC 5.04 Hgb 10.5 L Hct 35.4 MCV 70.4 L MCH 20.8 L MCHC 29.6 L RDW 26.6 H Plt Count 317 MPV 8.7 Neutrophils % 61.0 Lymphocytes % 24.2 D Monocytes % 9.8 Eosinophils % 4.5 Basophils % 0.5 Sodium 140 Potassium 4.3 Chloride 104 Carbon Dioxide 28 Anion Gap 8 BUN 9 Creatinine 0.7 Creat Clearance w eGFR > 60 Random Glucose 105 Calcium 8.8 Magnesium 2.1 Total Bilirubin 0.6 AST 10 L ALT 14 Alkaline Phosphatase 88 Total Protein 6.8 Albumin 3.4 Blood Type O NEGATIVE Antibody Screen Negative Crossmatch See Detail HOSPITAL COURSE: Date of Admission:08/28/17 Date of Discharge: 09/01/17 ASSESSMENT/PLAN: Patient is a 52 year old female with no reported past medical history. She was admitted to [facility] on 08/28/2017 for symptoms of dizziness, vomiting and increased facial pallor. During hospitalization, patient had a colonscopy which revealed a colon mass. She was also found to have symptomatic anemia and has received multiple units of prbcs (3 units). Colonoscopy report: left colon mass, biopsy Pathology report: A. duodenum biopsy, mucosa without significant path. finding b. stomach, antrum and body biopsy: astric antral and body mucosa with mild chronic gastritis strain for h pylori negative c. stomach, gastric polyps, biopsy: fundic gland polyps d. descending colon, polyp biopsy: tubular adenoma e. Colon 60cm mass biopsy: invasive adenocarcinoma, mod. differentiated. f. sigmoid polyp, biopsy: tubular adenoma. Hematology/Oncology: Colon mass seen on colonoscopy Pathology above CTAP reviewed Hematology/Oncology following GI following Patient wants transfer to to [facility] for surgery and further treatment options She has an appointment with GI medical certification specialist on September 04 @ 8:30a.m. Patient aware and in agreement Chronic blood loss anemia, resolved Symptomatic anemia, resolved Microcytic anemia, resolved She has been transfused 3 units of prbc since admission, hmg/hct now stable She denies shortness of breath, denies pain, denies dizziness Signs and symptoms of acute blood loss reviewed with patient Neuro: Dizziness, resolved Likely secondary to acute blood loss anemia Denies dizziness on exam Cardiac workup negative TSH normal, trops negative Echo reviewed Carotid negative No further dizziness d/c tele Dispo: full code. Discharge follow up appointment with [facility] on September 04 @ 0830. Patient to take all imaging and pathology slides to [facility]. Minutes to complete discharge: 60 Discharge Summary Reason For Visit: TRNSFUSIONS OF BLOOD Current Active Problems Blood transfusion during current hospitalisation (Acute) Colonic mass (Acute) Dizziness (Acute) Iron deficiency anemia due to chronic blood loss (Acute) Microcytic hypochromic anemia (Acute) Symptomatic anemia (Acute) Thrombocytosis (Acute) Condition: Guarded - Instructions Diet, Activity, Other Instructions: Mrs. Bull: You were admitted to [facility] on 08/28/2017 for acute blood loss anemia. We have performed various studies on you and found a colon mass that needs to be further worked up. We have arranged for you to be treated at [facility], as per your request. Your appointment is for this September 04 at 0830. Please return to the ER if you experience any of the following symptoms: - Worsening abdominal pain - Abdominal bloating or distention - Rectal bleeding (black stool) - Worsening nausea or vomiting - Unable to hold down food - Unable to pass a bowel movement or severe pain when passing a bowel movement - unable to eat or drink I am available tomorrow between 7am and 7pm. My cell phone no. is [phone]. Please call me anytime, day or night and I would be happy to take your call. You will need the pathology film records to take with you. You will also need the colonoscopy slides. We will take care of the rest. Thank you for the opportunity to care for you. MALA [facility] @ [facility] office: [phone] cell: [phone] Referrals: Gordo Rao MD [Staff Physician] - ON STAFF,NOT [Primary Care Provider] - Otilio Quinn MD [Staff Physician] - Disposition: HOME - Home Medications Comprehensive Discharge Medication List: Ambulatory Orders No Home Medications 0 dose .ROUTE UTDICT 10/16/12 This patient is new to me today: Yes Date on this admission: 09/01/17 Emergency Visit: Yes ED Registration Date: 08/28/17 Care time: The patient presented to the Emergency Department on the above date and was hospitalized for further evaluation of their emergent condition. Critical Care patient: No - Discharge Referral Referred to [facility] No
== END 2017-09-01 19:11 | disposition home or self-care (01) | DRG 375 ==
LOC: JER 10:49 → JERBED 14:18 → INTOOBSV 14:18 → UNDOADMOB 14:18 → JERBED 15:11 → J4S 15:44 → OBSVTOIN 08-28 19:28
PROVIDERS: ADMIT Internal Medicine; ATTEND Nurse Practitioner Family
PROC: 30233N1 Transfusion of Nonautologous Red Blood Cells into Peripheral Vein, Percutaneous Approach (ICD-10-PCS; 2017-08-26)
PROC: 0DBN8ZX Excision of Sigmoid Colon, Via Natural or Artificial Opening Endoscopic, Diagnostic (ICD-10-PCS; 2017-08-28)
PROC: 0DD98ZX Extraction of Duodenum, Via Natural or Artificial Opening Endoscopic, Diagnostic (ICD-10-PCS; 2017-08-28)
PROC: 0DBP8ZX Excision of Rectum, Via Natural or Artificial Opening Endoscopic, Diagnostic (ICD-10-PCS; 2017-08-28)
PROC: 0DD68ZX Extraction of Stomach, Via Natural or Artificial Opening Endoscopic, Diagnostic (ICD-10-PCS; 2017-08-28)
PROC: 0DDE8ZX Extraction of Large Intestine, Via Natural or Artificial Opening Endoscopic, Diagnostic (ICD-10-PCS; principal; 2017-08-28 09:30)
DX: C18.9 Malignant neoplasm of colon, unspecified (principal); D62 Acute posthemorrhagic anemia; D47.3 Essential (hemorrhagic) thrombocythemia; R42 Dizziness and giddiness; K63.5 Polyp of colon; K62.1 Rectal polyp; K29.60 Other gastritis without bleeding
CPT/HCPCS: 36415; 36430; 70450-TC; 71045-TC; 71260-TC; 74177-TC; 76830-TC; 80053; 80061; 81003; 82272; 82378; 82550; 82728; 82784; 83021; 83036; 83516; 83540; 83550; 83615; 83721; 83735; 84100; 84155; 84165; 84443; 84484; 85025; 85044; 85610; 85660; 86334; 86850; 86900; 86901; 86922; 88305-TC; 88341-TC; 93005; 93010; 93306-TC; 93880-TC; 99283-25; G0378; P9038; P9058